=== PATIENT | female | born 1940 | race Caucasian/White ===

== ENCOUNTER 2017-05-25 17:22 | Inpatient (IN) | payer MEDICARE, OTHER, SELFPAY ==
[2017-05-25 17:23] VITALS: BP 157/69; PULSE 104; RESP 24; TEMP 37.2; O2SAT 98; BMI 33.7
--- NOTE | 2017-05-25 17:46 | CT_ITS ---
STUDY: CT BRAIN WITHOUT CONTRAST REASON FOR EXAM: Female, 77 years old. Weakness for 2 months. Hallucinations. History of diabetes and skin cancer. RADIATION DOSAGE (If Supplied By Facility): CTDIvol = ( 44.99 ) mGy, DLP = ( 812.98 ) mGycm TECHNIQUE: Transaxial CT imaging of the brain was performed without administration of intravenous contrast material. Individualized dose optimization techniques were used for this CT. COMPARISON: None. FINDINGS: Normal soft tissue structures. Normal calvarium. There is mild cerebral atrophy with widening of the extra-axial spaces and ventricular dilatation. There are areas of decreased attenuation within the white matter tracts of the supratentorial brain, consistent with microvascular disease changes. Normal basal ganglia and thalami. Normal brainstem. Normal cerebellum. There is no intracranial hemorrhage. There are no findings of an acute ischemic infarction. There is minimal ethmoid sinusitis. CT/Brain/Head without Contrast IMPRESSION: 1. Chronic involutional changes without evidence of acute intracranial or calvarial abnormality. 2. Mild ethmoid sinusitis. Electronically Signed: Kevin Cabrera DO at 18:25 EST Tel [phone], Service support ,
--- NOTE | 2017-05-25 17:47 | EKG12_ITS ---
Test Reason : STROKE Blood Pressure : / mmHG Vent. Rate : 107 BPM Atrial Rate : 107 BPM P-R Int : 182 ms QRS Dur : 084 ms QT Int : 334 ms P-R-T Axes : 032 -24 023 degrees QTc Int : 445 ms Sinus tachycardia Otherwise normal ECG Confirmed by DENNIS MULLIGAN, FRANKO ([id number]), editorial intern EULA LOCKHART ([id number]) on 05/29/2017 4:20:59 PM Referred By: Confirmed By:FRANKO COLLINS MD
[2017-05-25 18:00] LABS: Absolute Lymphocyte Count 1.03 X10^3/ul (0.83-4.51); Absolute Neutrophil Count 15.2 X10^3/uL (2.0-7.7); Basophil# 0.03 X10^3/uL; Basophil% 0.2 % (0-1); Eosinophil# 0.02 X10^3/uL; Eosinophils% 0.1 % (0-5); Hematocrit 41.3 % (37-47); Hemoglobin 13.5 g/dl (12.0-15.0); Lymphocyte # 1.03 X10^3/ul (4.0); Mean Corp Hgb Conc 32.7 g/gl (32-36); Mean Corpuscular Hgb 28.2 pg (27.0-32.0); Mean Corpuscular Volume 86.2 fL (81-99); Mean Platelet Vol. 9.5 fl (6.2-12.0); Monocyte# 0.95 X10^3/uL; Monocyte% 5.5 % (0-10); Neutrophil # 15.19 X10^3/uL (2.7-7.7); Neutrophil % 87.9 % (47-70); POSITIVE COUNT NO; POSITIVE DIFFERENTIAL NO; POSITIVE MORPHOLOGY NO; Platelet Count 281 K/mm3 (150-450); RBC Distribution Width CV 13.7 % (11.6-14.6); RBC Distribution Width SD 42.3 fl (35.1-43.9); Red Blood Count 4.79 M/mm3 (4.2-5.4); White Blood Count 17.3 K/mm3 (4.4-11.0)
--- NOTE | 2017-05-25 18:10 | RAD_ITS ---
STUDY: X-RAY CHEST REASON FOR EXAM: Female, 77 years old. Weakness. TECHNIQUE: PA and lateral views of the chest. COMPARISON: June 19, 2013. FINDINGS: Telemetry wires overlie the chest. The lungs are clear and expanded. There is no demonstrated pleural abnormality. Normal size heart. Normal mediastinum and joselyn. Normal visualized pulmonary arteries. Normal visualized aortic arch and descending thoracic aorta. There are diffuse degenerative changes of the visualized thoracic spine. Normal visualized ribs, clavicles, and shoulders. There are now surgical clips in the right breast. There is no demonstrated abnormality of the visualized soft tissue structures of the upper abdomen. RAD/Chest PA and Lateral IMPRESSION: No acute cardiopulmonary disease or major interval change. Electronically Signed: Kevin Cabrera DO at 18:32 EST Tel [phone], Service support ,
[2017-05-25 18:41] VITALS: BP 124/91; PULSE 98; RESP 16; O2SAT 98
[2017-05-25 18:42] LABS: Anion Gap 8 (5-15); BUN 11 mg/dL (7-18); BUN/Creat Ratio 10.5 RATIO (10-20); Calcium,Total 9.1 mg/dL (8.5-10.1); Chloride 102 mmol/L (98-107); Creatinine, Serum 1.05 mg/dL (0.55-1.02); EST Glomerular Filtration Rate 54 mL/min (>60); Est Glom Filt Rate - Afr Amer 65 mL/min (>60); Estimated Creatinine Clearance 40.38 ml/min; Glucose 135 mg/dL (74-106); Potassium 4.3 mmol/L (3.5-5.1); Sodium Level 135 mmol/L (136-145); Thyroid Stim Hormone (TSH) 0.32 uIU/mL (0.358-3.74)
[2017-05-25 19:21] VITALS: BP 124/91; PULSE 105; RESP 22; O2SAT 96
[2017-05-25 19:38] LABS: Bacteria 0 SEEN /hpf (None Seen); Mucous, Urine 0 SEEN /hpf (<or=2+); Red Blood Cells-Urine 0 SEEN /hpf (0-5)
[2017-05-25 19:52] LABS: Color, Urine Yellow (Yellow); Glucose, Dipstick Normal (Normal); Ketone-Dipstick Negative (Negative); Leukocyte Esterase-Dipstick 500 /ul (Negative); Nitrite-Dipstick Negative (Negative); Occult Blood-Urine Negative /ul (Negative); Protein-Dipstick Negative (Negative); Specific Gravity, Urine 1.005 (1.002-1.030); Urine Bilirubin Dipstick Negative (Negative); Urine Clarity Clear (Clear); Urine Urobilinogen Normal (Normal); Urine pH 6.5 (5.0 - 8.0)
[2017-05-25 20:13] LABS: White Blood Cells 5-10 SEEN /hpf (0-5)
[2017-05-25 20:14] LABS: Squamous Epithelial Cells - UA 0-5 SEEN /hpf (5-10)
--- NOTE | 2017-05-25 21:08 | ED.DCSUM_ITS ---
- ER Visit Summary Date of Service: 05/25/17 Chief Complaint: Confusion History of Present Illness: The patient is a [address] Rasocn. Family reports that she has been confused over the course the past 3 days. They question whether this is because she had her Wellbutrin increased from 150-300 mg 2 weeks ago. Patient uses as an example that she meant walking to the bathroom and she ended up in the kitchen. She states that she had a near fall today because she was off balance. Son reports that he found her on the floor. She lives by herself. Patient denies any pain or trauma from the fall. No neck, back, shoulder, wrist , or hip injury. She states she has had a cough for the past 3 days. She denies any fever, chills, chest pain, shortness of breath, abdominal pain, nausea, vomiting, diarrhea. No dysuria or frequency. No rash, headache, numbness, or weakness. She reports that her balance is off and that this comes and goes. Physical Examination: Vitals: Stable. Afebrile. General: Well-nourished and well-developed. Head: Normocephalic atraumatic. Neck: Supple, no lymphadenopathy. No JVD. Nontender. Cardiovascular: Regular rate and rhythm. 2 out of 6 systolic murmur. Respiratory: No respiratory distress. Clear to auscultation bilaterally. Abdominal: Soft, nontender, nondistended, normal bowel sounds. No guarding, rebound, or peritoneal signs. Back: Nontender. Extremities: Nontender, no edema. Skin: Normal color, no rash. Neurologic: Alert and oriented ? 2. She believes that it is 2111. Cranial nerves II through XII are intact. Normal strength and sensation. Psych: Normal affect. Test Results: EKG is sinus tach at [address] changes. This is unchanged from May 2013. Troponin is negative. UA shows 5-10 white blood cells without bacteria. This was sent for culture. Chem-7 is more for sodium 135, glucose 135, creatinine 1.05. TSH is 0.32. CBC is marked for white count of 17.3 with 88 segmented neutrophils and 6 lymphocytes. Chest x-ray shows chronic changes and no acute disease. CT brain shows chronic changes and mild ethmoid sinusitis. Emergency Department Course and Treatment: Patient has waxing and waning confusion consistent with an acute delirium. She does not appear uncomfortable. She denies headache. She clearly has no pain with movement of her neck. I do not feel that an LP is indicated. Family prefers this as well. Urine was sent for culture and the patient was given a gram of Rocephin IV. Treatment Plan: The patient was discussed with Dr. Isabel. She will be admitted to the hospital for further evaluation and treatment. Disposition: Admitted in stable condition. Impression: 1. Acute delirium. 2. Low TSH. 3. History of hypothyroidism. 4. Pyuria. 5. Leukocytosis. This note was generated with [employer] dictation software. It may contain incorrect words, spelling, and punctuation that were not noted in review of the chart prior to signing ED Disposition - Plan for ED Patient: Chief Complaint: Weakness Referrals: Rashad Rascon MD [Primary Care Provider] -
[2017-05-25] MEDS: Ceftriaxone 1 GM/50 ML BAG IV (21:12)
[2017-05-25 21:14] VITALS: BP 146/71; PULSE 92; RESP 22; O2SAT 94
--- NOTE | 2017-05-25 22:20 | PCM.HP.STD ---
Problem List (1) Dementia Status: Acute (2) UTI (urinary tract infection) Status: Acute (3) Delirium Status: Acute History of Present Illness Date of Admission: 05/25/17 Chief Complaint: Delirium secondary to UTI The patient is a 77 year old female w/ h/o senile dementia, hypothyroid, and HTN admitted for delirium. She has been having forgetfulness and worsening senile dementia for the past few years. Family has noted that for the past few months, she has been more confused at time. In the last few days, family noted that her confusion has gotten much worse. She lives by herself. She would talk to her who is not there. She would mistaken her son as her . She also has increase urinary frequency in the few days. She occasionally has burning sensation. Nothing made it better or worse. She is a poor historian and history is taken from her son. Past Medical History Allergies povidone-iodine [From Betadine] Allergy (Verified 05/25/17 17:26) Rash soap [From Betadine] Allergy (Verified 05/25/17 17:26) Rash Sulfa (Sulfonamide Antibiotics) Allergy (Verified 05/25/17 17:26) Rash adhesive Adverse Reaction (Verified 05/25/17 17:26) Hives diazepam [From Valium] Adverse Reaction (Verified 05/25/17 17:26) Other SLURRED SPEECH SODIUM PENTOTHAL Allergy (Uncoded 05/25/17 17:26) Nausea/Vom/Diarrhea SURGICAL TAPE Adverse Reaction (Uncoded 05/25/17 17:26) Hives Home Medications: Ambulatory Orders Medication Instructions Recorded Duloxetine Hcl [Cymbalta] 60 mg PO DAILY 06/19/13 Levothyroxine [Synthroid] 100 mcg PO DAILY 06/19/13 Losartan Potassium [Cozaar] 50 mg PO DAILY 06/19/13 Metformin HCl [Glucophage] 500 mg PO BID 06/19/13 Multivit-Min/FA/Lycopene/Lut 1 each PO DAILY 06/19/13 [Centrum Silver Tablet] Hydrocodone Bitart/Apap 5-325 1 tablet PO Q6H PRN PRN #15 tablet 06/26/13 [[place] 5/325] Atorvastatin Calcium [Lipitor] 20 mg PO QHS 05/25/17 Bupropion HCl [Wellbutrin Xl] 300 mg PO DAILY 05/25/17 Cholecalciferol (Vitamin D3) 50,000 unit PO QWEEK 05/25/17 [Vitamin D] Cyanocobalamin (Vitamin B-12) 1,000 mcg IJ QMONTH 05/25/17 [B-12 Compliance] Psychiatric History: No pertinent psych hx 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 Lives: Alone Smoking Status: Never smoker - *Family History Maternal History Items: No pertinent history Review of Systems Constitutional: Denies: Chills, Fever, Weight Change HEENT: Denies: Head Aches, Sinus Congestion, Sinus Drainage Cardiovascular: Denies: Chest Pain, Palpitations Respiratory: Denies: Cough, Shortness of breath at rest, Sputum production Gastrointestinal: Denies: Abdominal Pain, Nausea, Vomiting Genitourinary: Denies: Dysuria Musculoskeletal: Denies: Joint Pain, Joint Tenderness Skin: Denies: Rash, Wounds Neurological: Denies: Numbness, Tingling, Focal weakness Psychiatric: Denies: Anxiety, Depression, Homicidal Ideations, Suicidal Ideations Hematologic/ Lymphatic: Denies: Easy Bruising, Easy Bleeding VTE Information - Inpt Only VTE Present on Admission: No VTE Mechan Device Prophylaxis: SCD's VTE Pharm Prophylaxis ordered?: Yes Patient Problems: Active and Suspected Problems Dementia (Acute) UTI (urinary tract infection) (Acute) Delirium (Acute) - Physical Exam General: Alert, Oriented x3, Cooperative HEENT: Atraumatic, PERRLA, EOMI, Normocephalic Neck: Supple, No JVD, Negative Carotid Bruits Lungs: Clear to auscultation, Normal air movement Cardiovascular: Regular rate, No murmurs Abdomen: Bowel Sounds Present, Soft, Non Tender Extremities: No edema, Capillary Refill Less than 3 Seconds Skin: No rashes, No breakdown Musculoskeletal: No Tenderness to Palpation of Joints or Extremities Neurological: Cranial nerves II-XII grossly intact Psych/Mental Status: Normal Affect, Appropriate Vital Signs Temp Pulse Resp BP Pulse Ox 98.9 F 92 22 H 146/71 H 94 05/25/17 17:23 05/25/17 21:14 05/25/17 21:14 05/25/17 21:14 05/25/17 21:14 Oxygen Delivery Method Room Air Weight: 92 kg Body Mass Index (BMI) 33.7 Finger Stick Blood Glucose 132 Laboratory Tests Past 24 Hrs 05/25/17 05/25/17 05/25/17 17:30 17:30 19:30 WBC 17.3 H RBC 4.79 Hgb 13.5 Hct 41.3 MCV 86.2 MCH 28.2 MCHC 32.7 RDW 13.7 RDW Differential 42.3 Plt Count 281 MPV 9.5 Immature Gran % (Auto) 0.300 Neut % (Auto) 87.9 H Lymph % (Auto) 6.0 L [place] % (Auto) 5.5 Eos % (Auto) 0.1 Baso % (Auto) 0.2 Absolute Neuts (auto) 15.2 H Absolute Lymphs (auto) 1.03 Total Counted Not Reportable Sodium 135 L Potassium 4.3 Chloride 102 Carbon Dioxide 25.0 Anion Gap 8 BUN 11 Creatinine 1.05 H Estim Creat Clear Calc 40.38 Est GFR (MDRD) Af Amer 65 Est GFR (MDRD) Non-Af 54 L BUN/Creatinine Ratio 10.5 Glucose 135 H Calcium 9.1 Troponin I < 0.02 TSH 0.32 L Urine Color Yellow Urine Clarity Clear Urine pH 6.5 Ur Specific [place] 1.005 Urine Protein Negative Urine Glucose (UA) Normal Urine Ketones Negative Urine Occult Blood Negative Urine Nitrite Negative Urine Bilirubin Negative Urine Urobilinogen Normal Ur Leukocyte Esterase 500 H Urine RBC 0 SEEN Urine WBC 5-10 SEEN Ur Squamous Epith Cells 0-5 SEEN Urine Bacteria 0 SEEN Urine Mucus 0 SEEN Assessment/Plan Active and Suspected Problems Dementia (Acute) UTI (urinary tract infection) (Acute) Delirium (Acute) 77 year old female w/ h/o senile dementia, hypothyroid, and HTN admitted for delirium. 1) Delirium: Probably UTI vs sedative meds. Will start ceftriaxone. Will send for ammonia, TSH, cortisol, B12 / folate, and RPR. Consulted neuro. 2) UTI: C/w ceftriaxone. Pt has leukocytosis and symptoms c/w UTI. Cultures pending. 3) Senile dementia: Supportive care. Will limit sedative meds. Monitor. 4) Dispo: Pt will most likely need SNF as she is unable to care for herself and family unable to care for her. Social work / rn case management consulted. 5) Prophylaxis: SCD / heparin.
[2017-05-25 22:26] VITALS: BP 145/81; PULSE 90; RESP 16; O2SAT 95
[2017-05-25 23:05] VITALS: BMI 33.3
[2017-05-25 23:07] VITALS: BMI 33.3
[2017-05-25 23:35] VITALS: BP 145/64; PULSE 89; RESP 16; TEMP 37.1; O2SAT 95
[2017-05-25] MEDS: 0.9% Normal Saline 1,000 ML 100 ML IV (23:50)
[2017-05-25] MEDS: 0.9% NaCl Peripheral Flush Adult/Peds IV (23:50)
[2017-05-26] VITALS (7 sets, daily range): BP systolic 134–158; BP diastolic 65–71; PULSE 85–97; RESP 14–18; TEMP 36.7–37.3; O2SAT 96–98
[2017-05-26] MEDS: Levothyroxine 100 MCG Tablet PO (05:48)
[2017-05-26 06:14] LABS: Ammonia < 10.0 umol/L (11-32)
--- NOTE | 2017-05-26 09:38 | PCM.PROGNOTE ---
Patient Problems: Active and Suspected Problems Toxic metabolic encephalopathy (Acute) Subjective: Patient is a 77-year-old female with a past medical history of dementia, hypothyroidism diabetes mellitus type 2 , depression, hyperlipidemia and hypertension who was brought to the emergency room with a complaint of increased confusion over the preceding 2-3 days. She lives by herself. She complained of increased urinary frequency and dysuria. Temperature was 98.9 with pulse rate of 104, blood pressure of 157/69, respiratory rate of 24 and she was 98% saturated on room air. White blood cell count was elevated at 17.3 with a left shift. Hemoglobin was 13.5 and platelets were 281,000. BUN was 11 with a creatinine of 1.05. Troponin was less than 0.02. Her TSH was 0.32. Serum ammonia was less than 10. Urine had 5-10 white blood cells and no red blood cells. There was 0-5 squamous epithelial cells and it was nitrite negative. Chest x-ray showed no infiltrates. CT brain showed no acute findings. She was admitted to the hospital with a diagnosis of dementia with acute metabolic encephalopathy secondary to urinary tract infection. He was started on ceftriaxone and a urine culture was sent. She has been afebrile since admission. Streptococcal and Legionella antigens in the urine were negative. Influenza swab was negative. Urine culture and 1 blood culture are pending. When I asked her why she was in the hospital she told me her family thinks she is crazy. She denied dysuria but did c/o urinary frequency....recently had Wellbutrin increased to 300 mg daily. she had > 400 cc urine in the bladder and a johansen was inserted. she keeps feeling as though she needs to urinate. - Physical Exam General: Alert, Cooperative, Confused - oriented to person and knows she is in the hospital but can not tell me which hospital HEENT: Atraumatic, PERRLA, EOMI, Normocephalic Oral: Dry Mucosa Neck: Supple, No Nodes, Trachea Midline Lungs: Clear to auscultation, No rhonchi, No wheeze, No rales Cardiovascular: Regular rate, Regular Rhythm, Normal S1, Normal S2, No Gallop Abdomen: Bowel Sounds Present, Soft, Non Tender, Non-Distended, Obese Extremities: No clubbing, No cyanosis, No edema, No Calf Tenderness Skin: No rashes, No breakdown Neurological: Cranial nerves II-XII grossly intact, Neuro grossly intact Psych/Mental Status: Agitated Vital Signs Temp Pulse Resp BP Pulse Ox 99.2 F H 85 14 140/68 H 96 05/26/17 05:45 05/26/17 05:45 05/26/17 05:45 05/26/17 05:45 05/26/17 05:45 Oxygen Delivery Method Room Air Weight: 200 lb 2.876 oz Body Mass Index (BMI) 33.3 Intake and Output for Last 24 Hours 05/24/17 05/25/17 05/26/17 23:59 23:59 23:59 Intake Total 696 / 696 Balance 696 / 696 Microbiology Past 72 Hours 05/26/17 01:20 Influenza Types A,B Direct FA (BASSEM) - Final Mucosa - Nose Laboratory Tests Past 24 Hrs 05/25/17 05/26/17 05/26/17 23:21 05:40 05:40 Ammonia < 10.0 L Vitamin B12 Pending Folate Cortisol RPR Pending 05/26/17 05/26/17 05:40 05:40 Ammonia Vitamin B12 Folate 43.00 Cortisol 14.20 RPR Assessment/Plan Active and Suspected Problems Toxic metabolic encephalopathy (Acute) Impressions 1. Toxic Encephalopathy - likely secondary to wellbutrin 2. urine retention - due to Wellbutrin 3. dementia - suspected 4. DM II 5. Depression 6. Hypothyroidism 7. HTN 8. possible UTI continue the antibiotics and await the results of the urine culture wellbutrin has been discontinued Keep the johansen today and DC in the AM for a voiding trial TSH and T4 Seroquel 12.5 mg now and then 25 mg at HS I suspect the WEllbutrin is making her agitated. consult has been ordered with Dr. Ludwig. Code Visit Inpatient E&M: 01919 Subs Hosp L2
[2017-05-26] MEDS: 0.9% Normal Saline 1,000 ML 100 ML IV ×2 (09:51→20:11)
[2017-05-26] MEDS: Ceftriaxone 1 GM/50 ML BAG IV (09:51)
[2017-05-26] MEDS: Multivitamins,Ther W-Minerals Tablet 1 TABLET PO (09:55)
[2017-05-26] MEDS: Losartan Potassium 50 MG Tablet PO (09:55)
[2017-05-26] MEDS: DULoxetine Hcl 60 MG Capsule PO (09:55)
--- NOTE | 2017-05-26 10:59 | CASEMGMT ---
Social Work Note Pt has hx of dementia that according to the H&P has increased over the past few weeks. Pt is oriented to self and no family is present at this time. Physician is anticipating need for placement. PT/OT is ordered. SW placed call to the pt's son, Hector Varghese, and left a requesting a return phone call. SW to continue to follow and assist with discharge planning. Plan: DORY Naidu, DENSITOMETRIST, HOSPITAL MEDICAL ASSISTANT
--- NOTE | 2017-05-26 12:15 | CASEMGMT ---
Social Work Note Face to face with the pt and her son, Jr. Introduced self and role at [facility]. The pt reports to live in independent Living attached to the [facility]. There is not assistance provided in this setting and she has her own apartment on the second floor, there is elevator access. No steps for entry into the home, but if she uses the back entrance there are 3 according to the son. The pt has a walker and cane, but does not use them at baseline. She did use a standard walker with therapy today and their recommendation was home based on physical ability to care for self. Pt is independent with ADL's. Son lives locally and is supportive. At this time they intend on the pt returning, but are waiting to see how her mind clears and what her stability level is at discharge. SW to f/u on Sunday, pt may need HHC at discharge or to consider moving into [facility]. Medicare F2F placed on chart for physician to complete. Plan: DORY Naidu, GAME ARTIST, C CONSULTANT
[2017-05-26] MEDS: QUEtiapine 25 MG Tablet 12.5 MG PO (12:38)
[2017-05-26] MEDS: QUEtiapine 25 MG Tablet PO (20:11)
[2017-05-26] MEDS: Atorvastatin Calcium 20 MG Tablet PO (20:11)
[2017-05-27 02:15] VITALS: BP 146/68; PULSE 82; RESP 16; TEMP 36.8; O2SAT 97
[2017-05-27] MEDS: Levothyroxine 100 MCG Tablet PO (05:30)
[2017-05-27] MEDS: 0.9% Normal Saline 1,000 ML 100 ML IV (05:32)
[2017-05-27] MEDS: Multivitamins,Ther W-Minerals Tablet 1 TABLET PO (08:16)
[2017-05-27 08:42] LABS: Absolute Lymphocyte Count 1.74 X10^3/ul (0.83-4.51); Absolute Neutrophil Count 6.1 X10^3/uL (2.0-7.7); Basophil# 0.03 X10^3/uL; Basophil% 0.3 % (0-1); Eosinophil# 0.27 X10^3/uL; Hematocrit 36.8 % (37-47); Hemoglobin 11.8 g/dl (12.0-15.0); Lymphocyte # 1.74 X10^3/ul (4.0); Lymphocyte % 19.2 % (19-41); Mean Corp Hgb Conc 32.1 g/gl (32-36); Mean Corpuscular Volume 87.2 fL (81-99); Mean Platelet Vol. 9.6 fl (6.2-12.0); Monocyte% 9.9 % (0-10); Neutrophil % 67.4 % (47-70); Platelet Count 244 K/mm3 (150-450); RBC Distribution Width SD 43.9 fl (35.1-43.9); Red Blood Count 4.22 M/mm3 (4.2-5.4); White Blood Count 9.1 K/mm3 (4.4-11.0)
[2017-05-27 08:43] LABS: POSITIVE COUNT NO; POSITIVE DIFFERENTIAL NO; POSITIVE MORPHOLOGY NO
[2017-05-27 09:10] VITALS: BP 131/70; PULSE 87; RESP 18; TEMP 37.2; O2SAT 95
[2017-05-27 09:10] LABS: Anion Gap 7 (5-15); BUN 11 mg/dL (7-18); BUN/Creat Ratio 12.4 RATIO (10-20); Calcium,Total 8.2 mg/dL (8.5-10.1); Chloride 109 mmol/L (98-107); Creatinine, Serum 0.89 mg/dL (0.55-1.02); EST Glomerular Filtration Rate 66 mL/min (>60); Est Glom Filt Rate - Afr Amer 79 mL/min (>60); Estimated Creatinine Clearance 47.63 ml/min; Glucose 118 mg/dL (74-106); Potassium 4.3 mmol/L (3.5-5.1); Sodium Level 140 mmol/L (136-145)
[2017-05-27] MEDS: Losartan Potassium 50 MG Tablet PO (09:23)
[2017-05-27] MEDS: DULoxetine Hcl 60 MG Capsule PO (09:23)
[2017-05-27] MEDS: QUEtiapine 25 MG Tablet 12.5 MG PO (09:23)
[2017-05-27] MEDS: Ceftriaxone 1 GM/50 ML BAG IV (09:25)
--- NOTE | 2017-05-27 11:19 | PCM.CONS.GEN ---
Problem List (1) Metabolic encephalopathy Status: Acute (2) Delirium Status: Acute Reason for Consult Date of Consultation: 05/27/17 Reason for Consultation: Encephalopathy History of Present Illness: The patient is a 77 year old CF with PMH HTN, HLD, DM, Depression and hypothyroidism admitted with confusion. History is obtained from medical records and patient as well as her son. Per documentation patient had confusion for the past 2-3 days, per patient she was having hallucinations and was thinking that her will be visiting her. She lives alone, denies any frequent falls, does not use cane or walker to ambulate, does not drive. Per son prior to admission she probably was entangled in the belt of her dog and also had a fall. Per patient and family she has never been diagnosed with dementia, she does pay her bills and her son might also help her with the same. On admission she was found to have WBC -17.3, with slightly high creatinine-1.05, with UA- LE+ and BCs 5-10, CT head reported to show nothing acute, but showed ethmoid sinusitis. At present patient denies any MIRANDA, visual disturbances, speech disturbances, focal motor weakness or sensory loss, denies any tremors, REM behavior d/o, or hallucinations at present. Per documentation her Wellbutrin has been increased recently, no witnessed seizures, was also found to have TSH on admission. [] Past Medical History Allergies egg Allergy (Verified 05/25/17 23:32) Unknown povidone-iodine [From Betadine] Allergy (Verified 05/25/17 17:26) Rash soap [From Betadine] Allergy (Verified 05/25/17 17:26) Rash Sulfa (Sulfonamide Antibiotics) Allergy (Verified 05/25/17 17:26) Rash adhesive Adverse Reaction (Verified 05/25/17 17:26) Hives diazepam [From Valium] Adverse Reaction (Verified 05/25/17 17:26) Other SLURRED SPEECH SODIUM PENTOTHAL Allergy (Uncoded 05/25/17 17:26) Nausea/Vom/Diarrhea SURGICAL TAPE Adverse Reaction (Uncoded 05/25/17 17:26) Hives Home Medications: Ambulatory Orders Medication Instructions Recorded Duloxetine Hcl [Cymbalta] 60 mg PO DAILY 06/19/13 Levothyroxine [Synthroid] 100 mcg PO DAILY 06/19/13 Losartan Potassium [Cozaar] 50 mg PO DAILY 06/19/13 Metformin HCl [Glucophage] 500 mg PO BID 06/19/13 Multivit-Min/FA/Lycopene/Lut 1 each PO DAILY 06/19/13 [Centrum Silver Tablet] Hydrocodone Bitart/Apap 5-325 1 tablet PO Q6H PRN PRN #15 tablet 06/26/13 [[place] 5/325] Atorvastatin Calcium [Lipitor] 20 mg PO QHS 05/25/17 Bupropion HCl [Wellbutrin Xl] 300 mg PO DAILY 05/25/17 Cyanocobalamin (Vitamin B-12) 1,000 mcg IM QMONTH 05/25/17 [B-12 Compliance] Psychiatric History: No pertinent psych hx 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 HEENT: Atraumatic, PERRLA, EOMI, Normocephalic Neck: Supple Lungs: Clear to auscultation Cardiovascular: Regular rate Abdomen: Bowel Sounds Present, Soft, Non Tender Extremities: No clubbing Skin: No rashes Musculoskeletal: No Tenderness to Palpation of Joints or Extremities Neurological: - - consious, awake, AoAx1, Cn 2-12 grossly intact, power 5/5 all 4 extremities, no cerebellar signs, no sensory loss, Reflexes + B/L B/S/T/K/A, gait deferred. Vital Signs Temp Pulse Resp BP Pulse Ox 98.9 F 87 18 131/70 H 95 05/27/17 09:10 05/27/17 09:10 05/27/17 09:10 05/27/17 09:10 05/27/17 09:10 Oxygen Delivery Method Room Air Weight: 90.8 kg Body Mass Index (BMI) 33.3 Intake and Output for Last 24 Hours 05/25/17 05/26/17 05/27/17 23:59 23:59 23:59 Intake Total 2594 / 2594 1660 / 1660 Output Total 1875 / 1875 1100 / 1100 Balance 719 / 719 560 / 560 Microbiology Past 72 Hours 05/26/17 01:20 Influenza Types A,B Direct FA (BASSEM) - Final Mucosa - Nose Laboratory Tests Past 24 Hrs 05/26/17 05/27/17 05/27/17 05:40 08:05 08:05 WBC 9.1 RBC 4.22 Hgb 11.8 L Hct 36.8 L MCV 87.2 MCH 28.0 MCHC 32.1 RDW 14.0 RDW Differential 43.9 Plt Count 244 MPV 9.6 Immature Gran % (Auto) 0.200 Neut % (Auto) 67.4 Lymph % (Auto) 19.2 [place] % (Auto) 9.9 Eos % (Auto) 3.0 Baso % (Auto) 0.3 Absolute Neuts (auto) 6.1 Absolute Lymphs (auto) 1.74 Total Counted Not Reportable Sodium 140 Potassium 4.3 Chloride 109 H Carbon Dioxide 24.0 Anion Gap 7 BUN 11 Creatinine 0.89 Estim Creat Clear Calc 47.63 Est GFR (MDRD) Af Amer 79 Est GFR (MDRD) Non-Af 66 BUN/Creatinine Ratio 12.4 Glucose 118 H Calcium 8.2 L Thyroxine (T4) 8.0 Assessment/Plan Active and Suspected Problems Dementia (Acute) UTI (urinary tract infection) (Acute) Delirium (Acute) Metabolic encephalopathy (Acute) The patient is a 77 year old CF with PMH HTN, HLD, DM, Depression and hypothyroidism admitted with confusion. History is obtained from medical records and patient as well as her son. Per documentation patient had confusion for the past 2-3 days, per patient she was having hallucinations and was thinking that her will be visiting her. She lives alone, denies any frequent falls, does not use cane or walker to ambulate, does not drive. Per son prior to admission she probably was entangled in the belt of her dog and also had a fall. Per patient and family she has never been diagnosed with dementia, she does pay her bills and her son might also help her with the same. On admission she was found to have WBC -17.3, with slightly high creatinine-1.05, with UA- LE+ and BCs 5-10, CT head reported to show nothing acute, but showed ethmoid sinusitis. At present patient denies any MIRANDA, visual disturbances, speech disturbances, focal motor weakness or sensory loss, denies any tremors, REM behavior d/o, or hallucinations at present. Per documentation her Wellbutrin has been increased recently, no witnessed seizures, was also found to have TSH on admission. Has been started on ceftriaxone since admission. Impression Metabolic Encephalopathy Plan -Recommend MRI brain w/o contrast -CT head reviewed -Labs reviewed- mild UTI -May wean off Wellbutrin and avoid using the same in the future -Further medical management per primary team -Fall precautions -Recommend PT/OT -GI/DVT prophylaxis -Please call with questions if any -Thank you for allowing us to participate in patient's care and management. I spent 60 minutes taking history, doing physical examination, reviewing medical records, coordinating care and counseling the patient. Code Visit Inpatient E&M: 40908 Init Hosp L3
--- NOTE | 2017-05-27 11:28 | CON.PCM_ITS ---
Problem List (1) Metabolic encephalopathy Status: Acute (2) Delirium Status: Acute Reason for Consult Date of Consultation: 05/27/17 Reason for Consultation: Encephalopathy History of Present Illness: The patient is a 77 year old CF with PMH HTN, HLD, DM, Depression and hypothyroidism admitted with confusion. History is obtained from medical records and patient as well as her son. Per documentation patient had confusion for the past 2-3 days, per patient she was having hallucinations and was thinking that her will be visiting her. She lives alone, denies any frequent falls, does not use cane or walker to ambulate, does not drive. Per son prior to admission she probably was entangled in the belt of her dog and also had a fall. Per patient and family she has never been diagnosed with dementia, she does pay her bills and her son might also help her with the same. On admission she was found to have WBC -17.3, with slightly high creatinine-1.05 , with UA- LE+ and BCs 5-10, CT head reported to show nothing acute, but showed ethmoid sinusitis. At present patient denies any MIRANDA, visual disturbances, speech disturbances, focal motor weakness or sensory loss, denies any tremors, REM behavior d/o, or hallucinations at present. Per documentation her Wellbutrin has been increased recently, no witnessed seizures, was also found to have TSH on admission. [] Past Medical History Allergies egg Allergy (Verified 05/25/17 23:32) Unknown povidone-iodine [From Betadine] Allergy (Verified 05/25/17 17:26) Rash soap [From Betadine] Allergy (Verified 05/25/17 17:26) Rash Sulfa (Sulfonamide Antibiotics) Allergy (Verified 05/25/17 17:26) Rash adhesive Adverse Reaction (Verified 05/25/17 17:26) Hives diazepam [From Valium] Adverse Reaction (Verified 05/25/17 17:26) Other SLURRED SPEECH SODIUM PENTOTHAL Allergy (Uncoded 05/25/17 17:26) Nausea/Vom/Diarrhea SURGICAL TAPE Adverse Reaction (Uncoded 05/25/17 17:26) Hives Home Medications: Ambulatory Orders Medication Instructions Recorded Duloxetine Hcl [Cymbalta] 60 mg PO DAILY 06/19/13 Levothyroxine [Synthroid] 100 mcg PO DAILY 06/19/13 Losartan Potassium [Cozaar] 50 mg PO DAILY 06/19/13 Metformin HCl [Glucophage] 500 mg PO BID 06/19/13 Multivit-Min/FA/Lycopene/Lut 1 each PO DAILY 06/19/13 [Centrum Silver Tablet] Hydrocodone Bitart/Apap 5-325 1 tablet PO Q6H PRN PRN #15 tablet 06/26/13 [[place] 5/325] Atorvastatin Calcium [Lipitor] 20 mg PO QHS 05/25/17 Bupropion HCl [Wellbutrin Xl] 300 mg PO DAILY 05/25/17 Cyanocobalamin (Vitamin B-12) 1,000 mcg IM QMONTH 05/25/17 [B-12 Compliance] Psychiatric History: No pertinent psych hx 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 HEENT: Atraumatic, PERRLA, EOMI, Normocephalic Neck: Supple Lungs: Clear to auscultation Cardiovascular: Regular rate Abdomen: Bowel Sounds Present, Soft, Non Tender Extremities: No clubbing Skin: No rashes Musculoskeletal: No Tenderness to Palpation of Joints or Extremities Neurological: - - consious, awake, AoAx1, Cn 2-12 grossly intact, power 5/5 all 4 extremities, no cerebellar signs, no sensory loss, Reflexes + B/L B/S/T/K/A, gait deferred. Vital Signs Temp Pulse Resp BP Pulse Ox 98.9 F 87 18 131/70 H 95 05/27/17 09:10 05/27/17 09:10 05/27/17 09:10 05/27/17 09:10 05/27/17 09:10 Oxygen Delivery Method Room Air Weight: 90.8 kg Body Mass Index (BMI) 33.3 Intake and Output for Last 24 Hours 05/25/17 05/26/17 05/27/17 23:59 23:59 23:59 Intake Total 2594 / 2594 1660 / 1660 Output Total 1875 / 1875 1100 / 1100 Balance 719 / 719 560 / 560 Microbiology Past 72 Hours 05/26/17 01:20 Influenza Types A,B Direct FA (BASSEM) - Final Mucosa - Nose Laboratory Tests Past 24 Hrs 05/26/17 05/27/17 05/27/17 05:40 08:05 08:05 WBC 9.1 RBC 4.22 Hgb 11.8 L Hct 36.8 L MCV 87.2 MCH 28.0 MCHC 32.1 RDW 14.0 RDW Differential 43.9 Plt Count 244 MPV 9.6 Immature Gran % (Auto) 0.200 Neut % (Auto) 67.4 Lymph % (Auto) 19.2 [place] % (Auto) 9.9 Eos % (Auto) 3.0 Baso % (Auto) 0.3 Absolute Neuts (auto) 6.1 Absolute Lymphs (auto) 1.74 Total Counted Not Reportable Sodium 140 Potassium 4.3 Chloride 109 H Carbon Dioxide 24.0 Anion Gap 7 BUN 11 Creatinine 0.89 Estim Creat Clear Calc 47.63 Est GFR (MDRD) Af Amer 79 Est GFR (MDRD) Non-Af 66 BUN/Creatinine Ratio 12.4 Glucose 118 H Calcium 8.2 L Thyroxine (T4) 8.0 Assessment/Plan Active and Suspected Problems Dementia (Acute) UTI (urinary tract infection) (Acute) Delirium (Acute) Metabolic encephalopathy (Acute) The patient is a 77 year old CF with PMH HTN, HLD, DM, Depression and hypothyroidism admitted with confusion. History is obtained from medical records and patient as well as her son. Per documentation patient had confusion for the past 2-3 days, per patient she was having hallucinations and was thinking that her will be visiting her. She lives alone, denies any frequent falls, does not use cane or walker to ambulate, does not drive. Per son prior to admission she probably was entangled in the belt of her dog and also had a fall. Per patient and family she has never been diagnosed with dementia, she does pay her bills and her son might also help her with the same. On admission she was found to have WBC -17.3, with slightly high creatinine-1.05 , with UA- LE+ and BCs 5-10, CT head reported to show nothing acute, but showed ethmoid sinusitis. At present patient denies any MIRANDA, visual disturbances, speech disturbances, focal motor weakness or sensory loss, denies any tremors, REM behavior d/o, or hallucinations at present. Per documentation her Wellbutrin has been increased recently, no witnessed seizures, was also found to have TSH on admission. Has been started on ceftriaxone since admission. Impression Metabolic Encephalopathy Plan -Recommend MRI brain w/o contrast -CT head reviewed -Labs reviewed- mild UTI -May wean off Wellbutrin and avoid using the same in the future -Further medical management per primary team -Fall precautions -Recommend PT/OT -GI/DVT prophylaxis -Please call with questions if any -Thank you for allowing us to participate in patient's care and management. I spent 60 minutes taking history, doing physical examination, reviewing medical records, coordinating care and counseling the patient. Code Visit Inpatient E&M: 65802 Init Hosp L3
--- NOTE | 2017-05-27 12:21 | DCINST_ITS ---
- Discharge Diagnoses Current Active Problems: Current Active and Chronic Problems Dementia (Acute) UTI (urinary tract infection) (Acute) Delirium (Acute) Metabolic encephalopathy (Acute) You will use the following diet at home:: Other - Resume previous diet Your food should be the consistency of: Regular Your liquids should be the consistency of: Regular/Thin Discharge Activity: Return to Normal Activity Call your doctor if you observe: Fever of 101 or Higher, Numbness or Tingling, Shortness of breath, Dizziness, Fainting spells, Chest pain, - - any unilateral numbness or weakness, sudden loss of vision, trouble getting your words out, slurred speech, frequent falls Instructions: For Caregivers: Safety Tips for Dementia Patients, Understanding Dementia, Alzheimer's Disease Additional Instructions: I think the reason you felt like you had to urinate all the time at admission was you were retaining urine. This was most likely because of the recent increase in Wellbutrin. This medication was stopped and the catheter was removed and you have been able to urinate with no problem. You did not have a urinary tract infection......the urine culture has no growth. Wellbutrin can also cause agitation and insomnia and I do not think this medication is appropriate. The neurologist that saw you is Dr. Ludwig. He recommended stopping the Wellbutrin and getting an MRI of the brain. I have given you a requisition to obtain an MRI of the brain as an OP. You should call Dr. Rascon's office in the AM because you may need a pre- certification from your insurance company to have the MRI and then can get that done for you. Dr. Ludwig wants to see you in the office in 1 month. You are having some problems with memory loss and confusion and this is treatable. Dr. Ludwig can help you with this. I would not take Vicodin. This is a narcotic and can increase confusion. Take Tylenol for pain. Pending Tests on Discharge: B12 Allergies/Adverse Reactions: Allergies egg Allergy (Verified 05/25/17 23:32) Unknown povidone-iodine [From Betadine] Allergy (Verified 05/25/17 17:26) Rash soap [From Betadine] Allergy (Verified 05/25/17 17:26) Rash Sulfa (Sulfonamide Antibiotics) Allergy (Verified 05/25/17 17:26) Rash adhesive Adverse Reaction (Verified 05/25/17 17:26) Hives diazepam [From Valium] Adverse Reaction (Verified 05/25/17 17:26) Other SLURRED SPEECH SODIUM PENTOTHAL Allergy (Uncoded 05/25/17 17:26) Nausea/Vom/Diarrhea SURGICAL TAPE Adverse Reaction (Uncoded 05/25/17 17:26) Hives Medications to take at Discharge Duloxetine Hcl [Cymbalta] 60 mg PO DAILY 06/19/13 Levothyroxine [Synthroid] 100 mcg PO DAILY 06/19/13 Losartan Potassium [Cozaar] 50 mg PO DAILY 06/19/13 Metformin HCl [Glucophage] 500 mg PO BID 06/19/13 Multivit-Min/FA/Lycopene/Lut [Centrum Silver Tablet] 1 each PO DAILY 06/19/13 Atorvastatin Calcium [Lipitor] 20 mg PO QHS 05/25/17 Cyanocobalamin (Vitamin B-12) [B-12 Compliance] 1,000 mcg IM QMONTH 05/25/17 Acetaminophen [Tylenol] 650 mg PO Q4H PRN PRN #1 tablet 05/27/17 The following prescriptions were given: Acetaminophen [Tylenol] 650 mg PO Q4H PRN PRN #1 tablet PRN Reason: Pain Primary Care Physician: Rashad Rascon MD [Primary Care Provider] - Please follow up with your Primary Care Physician in: 5-7 days Please Follow Up With: Brunilda Ludwig MD When: 1 month Proposed Discharge Date: 05/27/17
--- NOTE | 2017-05-27 12:34 | PCM.DC.SUM ---
Discharge Date and Diagnosis Date of Admission: 05/25/17 Date of Discharge: 05/27/17 - Primary Discharge Diagnosis Active and Suspected Problems Toxic metabolic encephalopathy (Acute) - due to Wellbutrin - Secondary Discharge Diagnosis Chronic Problems HLD (hyperlipidemia) (Chronic) Depression (Chronic) DM II (diabetes mellitus, type II), controlled (Chronic) Hypothyroidism (Chronic) HTN (hypertension) (Chronic) Dementia (Chronic) - probably [place] [facility] Course and Treatment Imaging Results: 05/27/17 11:28 MRI Brain [Brain without Contrast] [MRI] Routine - requisition was given to obtain MRI as an OP Microbiology 05/25/17 19:30 Urine, Clean Catch Urine Culture - Preliminary Culture exhibits no growth. 05/25/17 19:30 Urine, Clean Catch Streptococcus pneumoniae Antigen (M - Final 05/25/17 19:30 Urine, Clean Catch Legionella Antigen - Final 05/26/17 01:20 Mucosa - Nose Influenza Types A,B Direct FA (BASSEM) - Final Laboratory Tests 05/25/17 05/25/17 05/25/17 17:30 17:30 19:30 WBC 17.3 H RBC 4.79 Hgb 13.5 Hct 41.3 MCV 86.2 MCH 28.2 MCHC 32.7 RDW 13.7 RDW Differential 42.3 Plt Count 281 MPV 9.5 Immature Gran % (Auto) 0.300 Neut % (Auto) 87.9 H Lymph % (Auto) 6.0 L [place] % (Auto) 5.5 Eos % (Auto) 0.1 Baso % (Auto) 0.2 Absolute Neuts (auto) 15.2 H Absolute Lymphs (auto) 1.03 Total Counted Not Reportable Sodium 135 L Potassium 4.3 Chloride 102 Carbon Dioxide 25.0 Anion Gap 8 BUN 11 Creatinine 1.05 H Estim Creat Clear Calc 40.38 Est GFR (MDRD) Af Amer 65 Est GFR (MDRD) Non-Af 54 L BUN/Creatinine Ratio 10.5 Glucose 135 H Calcium 9.1 Ammonia Troponin I < 0.02 Folate TSH 0.32 L Thyroxine (T4) Cortisol Urine Color Yellow Urine Clarity Clear Urine pH 6.5 Ur Specific [place] 1.005 Urine Protein Negative Urine Glucose (UA) Normal Urine Ketones Negative Urine Occult Blood Negative Urine Nitrite Negative Urine Bilirubin Negative Urine Urobilinogen Normal Ur Leukocyte Esterase 500 H Urine RBC 0 SEEN Urine WBC 5-10 SEEN Ur Squamous Epith Cells 0-5 SEEN Urine Bacteria 0 SEEN Urine Mucus 0 SEEN 05/26/17 05/26/17 05/26/17 05:40 05:40 05:40 WBC RBC Hgb Hct MCV MCH MCHC RDW RDW Differential Plt Count MPV Immature Gran % (Auto) Neut % (Auto) Lymph % (Auto) [place] % (Auto) Eos % (Auto) Baso % (Auto) Absolute Neuts (auto) Absolute Lymphs (auto) Total Counted Sodium Potassium Chloride Carbon Dioxide Anion Gap BUN Creatinine Estim Creat Clear Calc Est GFR (MDRD) Af Amer Est GFR (MDRD) Non-Af BUN/Creatinine Ratio Glucose Calcium Ammonia < 10.0 L Troponin I Folate 43.00 TSH Thyroxine (T4) Cortisol 14.20 Urine Color Urine Clarity Urine pH Ur Specific [place] Urine Protein Urine Glucose (UA) Urine Ketones Urine Occult Blood Urine Nitrite Urine Bilirubin Urine Urobilinogen Ur Leukocyte Esterase Urine RBC Urine WBC Ur Squamous Epith Cells Urine Bacteria Urine Mucus 05/26/17 05/27/17 05/27/17 05:40 08:05 08:05 WBC 9.1 RBC 4.22 Hgb 11.8 L Hct 36.8 L MCV 87.2 MCH 28.0 MCHC 32.1 RDW 14.0 RDW Differential 43.9 Plt Count 244 MPV 9.6 Immature Gran % (Auto) 0.200 Neut % (Auto) 67.4 Lymph % (Auto) 19.2 [place] % (Auto) 9.9 Eos % (Auto) 3.0 Baso % (Auto) 0.3 Absolute Neuts (auto) 6.1 Absolute Lymphs (auto) 1.74 Total Counted Not Reportable Sodium 140 Potassium 4.3 Chloride 109 H Carbon Dioxide 24.0 Anion Gap 7 BUN 11 Creatinine 0.89 Estim Creat Clear Calc 47.63 Est GFR (MDRD) Af Amer 79 Est GFR (MDRD) Non-Af 66 BUN/Creatinine Ratio 12.4 Glucose 118 H Calcium 8.2 L Ammonia Troponin I Folate TSH Thyroxine (T4) 8.0 Cortisol Urine Color Urine Clarity Urine pH Ur Specific [place] Urine Protein Urine Glucose (UA) Urine Ketones Urine Occult Blood Urine Nitrite Urine Bilirubin Urine Urobilinogen Ur Leukocyte Esterase Urine RBC Urine WBC Ur Squamous Epith Cells Urine Bacteria Urine Mucus Clinical Impression(s) from Imaging Studies Brain CT 05/25/17 17:46 IMPRESSION: 1. Chronic involutional changes without evidence of acute intracranial or calvarial abnormality. 2. Mild ethmoid sinusitis. Electronically Signed: Kevin Cabrera DO at 18:25 EST Tel [phone], Service support , Chest X-Ray 05/25/17 18:10 IMPRESSION: No acute cardiopulmonary disease or major interval change. Electronically Signed: Kevin Cabrera DO at 18:32 EST Tel [phone], Service support , Dr. Ludwig - Neurology Operations: None Procedures: None Summary of Care Provided: The Patient is a 77-year-old female with a past medical history of dementia, hypothyroidism diabetes mellitus type 2 , depression, hyperlipidemia and hypertension who was brought to the emergency room with a complaint of increased confusion over the preceding 2-3 days. She lives by herself. She complained of increased urinary frequency and dysuria. Temperature was 98.9 with pulse rate of 104, blood pressure of 157/69, respiratory rate of 24 and she was 98% saturated on room air. White blood cell count was elevated at 17.3 with a left shift. Hemoglobin was 13.5 and platelets were 281,000. BUN was 11 with a creatinine of 1.05. Troponin was less than 0.02. Her TSH was 0.32. Serum ammonia was less than 10. Urine had 5-10 white blood cells and no red blood cells. There was 0-5 squamous epithelial cells and it was nitrite negative. Chest x-ray showed no infiltrates. CT brain showed no acute findings. She was admitted to the hospital with a diagnosis of dementia with acute metabolic encephalopathy secondary to urinary tract infection. She was started on ceftriaxone and a urine culture was sent. Wellbutrin was discontinued. She was experiencing urine retention and a Shrestha catheter was inserted. Urine culture had mixed GM negatives and GM positives and this was likely a contaminated specimen. She was afebrile for the duration of her hospital stay. Vital signs were stable and she was alert and oriented on the date of discharge. She was seen by Dr. Ludwig on the day of DC and he ordered an MRI. MRI's are not done except on an emergency basis on Sundays and I did not feel she needed this done emergently. The Shrestha catheter was discontinued on 05/27/17 and the patient was able to urinate freely with no retention. It is likely that the Wellbutrin contributed to urine retention and also to confusion. She was discharged home on 05/27/17 on no new medications. She was instructed not to resume the Wellbutrin. I discussed the hospital stay with her son Jung on the phone on the day of DC and explained that the MRI could be done as an OP and he should discuss a referral for MRI with her PCP because a pre-certification may be needed. I also recommended that she follow up with Dr. Ludwig because she may benefit from medication to slow down the progression of the dementia. The family may need to consider at some point assisted living where she would have close supervision. This note was generated with [employer] software. It may contain incorrect words, spelling, and punctuation that were not noted in checking the note before signing. Discharge Activity: Return to Normal Activity Call your doctor if you observe: Fever of 101 or Higher, Numbness or Tingling, Shortness of breath, Dizziness, Fainting spells, Chest pain, - - any unilateral numbness or weakness, sudden loss of vision, trouble getting your words out, slurred speech, frequent falls Home Medications: Medications to take at Discharge Duloxetine Hcl [Cymbalta] 60 mg PO DAILY 06/19/13 Levothyroxine [Synthroid] 100 mcg PO DAILY 06/19/13 Losartan Potassium [Cozaar] 50 mg PO DAILY 06/19/13 Metformin HCl [Glucophage] 500 mg PO BID 06/19/13 Multivit-Min/FA/Lycopene/Lut [Centrum Silver Tablet] 1 each PO DAILY 06/19/13 Atorvastatin Calcium [Lipitor] 20 mg PO QHS 05/25/17 Cyanocobalamin (Vitamin B-12) [B-12 Compliance] 1,000 mcg IM QMONTH 05/25/17 Acetaminophen [Tylenol] 650 mg PO Q4H PRN PRN #1 tablet 05/27/17 Following Prescrptions Were Given to Patient: Acetaminophen [Tylenol] 650 mg PO Q4H PRN PRN #1 tablet PRN Reason: Pain Other Amb Orders: Brain without Contrast [MRI] Location: None Selected Primary Care Physician: Rashad Rascon MD [Primary Care Provider] - Please follow up with your Primary Care Physician in: 5-7 days Please Follow Up With: Brunilda Ludwig MD When: 1 month Patient Instructions: For Caregivers: Safety Tips for Dementia Patients, Understanding Dementia, Alzheimer's Disease Meaningful Use Info Meaningful Use Diagnoses (Choose all that apply): None applicable Code Visit Inpatient E&M: 18416 Disch Hosp
--- NOTE | 2017-05-27 12:39 | DS.PCM_ITS ---
Discharge Date and Diagnosis Date of Admission: 05/25/17 Date of Discharge: 05/27/17 - Primary Discharge Diagnosis Active and Suspected Problems Toxic metabolic encephalopathy (Acute) - due to Wellbutrin - Secondary Discharge Diagnosis Chronic Problems HLD (hyperlipidemia) (Chronic) Depression (Chronic) DM II (diabetes mellitus, type II), controlled (Chronic) Hypothyroidism (Chronic) HTN (hypertension) (Chronic) Dementia (Chronic) - probably [facility] Hospital Course and Treatment Imaging Results: 05/27/17 11:28 MRI Brain [Brain without Contrast] [MRI] Routine - requisition was given to obtain MRI as an OP Microbiology 05/25/17 19:30 Urine, Clean Catch Urine Culture - Preliminary Culture exhibits no growth. 05/25/17 19:30 Urine, Clean Catch Streptococcus pneumoniae Antigen (M - Final 05/25/17 19:30 Urine, Clean Catch Legionella Antigen - Final 05/26/17 01:20 Mucosa - Nose Influenza Types A,B Direct FA (BASSEM) - Final Laboratory Tests 05/25/17 05/25/17 05/25/17 17:30 17:30 19:30 WBC 17.3 H RBC 4.79 Hgb 13.5 Hct 41.3 MCV 86.2 MCH 28.2 MCHC 32.7 RDW 13.7 RDW Differential 42.3 Plt Count 281 MPV 9.5 Immature Gran % (Auto) 0.300 Neut % (Auto) 87.9 H Lymph % (Auto) 6.0 L [place] % (Auto) 5.5 Eos % (Auto) 0.1 Baso % (Auto) 0.2 Absolute Neuts (auto) 15.2 H Absolute Lymphs (auto) 1.03 Total Counted Not Reportable Sodium 135 L Potassium 4.3 Chloride 102 Carbon Dioxide 25.0 Anion Gap 8 BUN 11 Creatinine 1.05 H Estim Creat Clear Calc 40.38 Est GFR (MDRD) Af Amer 65 Est GFR (MDRD) Non-Af 54 L BUN/Creatinine Ratio 10.5 Glucose 135 H Calcium 9.1 Ammonia Troponin I < 0.02 Folate TSH 0.32 L Thyroxine (T4) Cortisol Urine Color Yellow Urine Clarity Clear Urine pH 6.5 Ur Specific [place] 1.005 Urine Protein Negative Urine Glucose (UA) Normal Urine Ketones Negative Urine Occult Blood Negative Urine Nitrite Negative Urine Bilirubin Negative Urine Urobilinogen Normal Ur Leukocyte Esterase 500 H Urine RBC 0 SEEN Urine WBC 5-10 SEEN Ur Squamous Epith Cells 0-5 SEEN Urine Bacteria 0 SEEN Urine Mucus 0 SEEN 05/26/17 05/26/17 05/26/17 05:40 05:40 05:40 WBC RBC Hgb Hct MCV MCH MCHC RDW RDW Differential Plt Count MPV Immature Gran % (Auto) Neut % (Auto) Lymph % (Auto) [place] % (Auto) Eos % (Auto) Baso % (Auto) Absolute Neuts (auto) Absolute Lymphs (auto) Total Counted Sodium Potassium Chloride Carbon Dioxide Anion Gap BUN Creatinine Estim Creat Clear Calc Est GFR (MDRD) Af Amer Est GFR (MDRD) Non-Af BUN/Creatinine Ratio Glucose Calcium Ammonia < 10.0 L Troponin I Folate 43.00 TSH Thyroxine (T4) Cortisol 14.20 Urine Color Urine Clarity Urine pH Ur Specific [place] Urine Protein Urine Glucose (UA) Urine Ketones Urine Occult Blood Urine Nitrite Urine Bilirubin Urine Urobilinogen Ur Leukocyte Esterase Urine RBC Urine WBC Ur Squamous Epith Cells Urine Bacteria Urine Mucus 05/26/17 05/27/17 05/27/17 05:40 08:05 08:05 WBC 9.1 RBC 4.22 Hgb 11.8 L Hct 36.8 L MCV 87.2 MCH 28.0 MCHC 32.1 RDW 14.0 RDW Differential 43.9 Plt Count 244 MPV 9.6 Immature Gran % (Auto) 0.200 Neut % (Auto) 67.4 Lymph % (Auto) 19.2 [place] % (Auto) 9.9 Eos % (Auto) 3.0 Baso % (Auto) 0.3 Absolute Neuts (auto) 6.1 Absolute Lymphs (auto) 1.74 Total Counted Not Reportable Sodium 140 Potassium 4.3 Chloride 109 H Carbon Dioxide 24.0 Anion Gap 7 BUN 11 Creatinine 0.89 Estim Creat Clear Calc 47.63 Est GFR (MDRD) Af Amer 79 Est GFR (MDRD) Non-Af 66 BUN/Creatinine Ratio 12.4 Glucose 118 H Calcium 8.2 L Ammonia Troponin I Folate TSH Thyroxine (T4) 8.0 Cortisol Urine Color Urine Clarity Urine pH Ur Specific [place] Urine Protein Urine Glucose (UA) Urine Ketones Urine Occult Blood Urine Nitrite Urine Bilirubin Urine Urobilinogen Ur Leukocyte Esterase Urine RBC Urine WBC Ur Squamous Epith Cells Urine Bacteria Urine Mucus Clinical Impression(s) from Imaging Studies Brain CT 05/25/17 17:46 IMPRESSION: 1. Chronic involutional changes without evidence of acute intracranial or calvarial abnormality. 2. Mild ethmoid sinusitis. Electronically Signed: Kevin Cabrera DO at 18:25 EST Tel [phone], Service support , Chest X-Ray 05/25/17 18:10 IMPRESSION: No acute cardiopulmonary disease or major interval change. Electronically Signed: Kevin Cabrera DO at 18:32 EST Tel [phone], Service support , Dr. Ludwig - Neurology Operations: None Procedures: None Summary of Care Provided: The Patient is a 77-year-old female with a past medical history of dementia , hypothyroidism diabetes mellitus type 2 , depression, hyperlipidemia and hypertension who was brought to the emergency room with a complaint of increased confusion over the preceding 2-3 days. She lives by herself. She complained of increased urinary frequency and dysuria. Temperature was 98.9 with pulse rate of 104, blood pressure of 157/69, respiratory rate of 24 and she was 98% saturated on room air. White blood cell count was elevated at 17.3 with a left shift. Hemoglobin was 13.5 and platelets were 281,000. BUN was 11 with a creatinine of 1.05. Troponin was less than 0.02. Her TSH was 0.32. Serum ammonia was less than 10. Urine had 5-10 white blood cells and no red blood cells. There was 0-5 squamous epithelial cells and it was nitrite negative. Chest x-ray showed no infiltrates. CT brain showed no acute findings. She was admitted to the hospital with a diagnosis of dementia with acute metabolic encephalopathy secondary to urinary tract infection. She was started on ceftriaxone and a urine culture was sent. Wellbutrin was discontinued. She was experiencing urine retention and a Shrestha catheter was inserted. Urine culture had mixed GM negatives and GM positives and this was likely a contaminated specimen. She was afebrile for the duration of her hospital stay. Vital signs were stable and she was alert and oriented on the date of discharge. She was seen by Dr. Ludwig on the day of DC and he ordered an MRI. MRI 's are not done except on an emergency basis on Sundays and I did not feel she needed this done emergently. The Shrestha catheter was discontinued on 05/27/17 and the patient was able to urinate freely with no retention. It is likely that the Wellbutrin contributed to urine retention and also to confusion. She was discharged home on 05/27/17 on no new medications. She was instructed not to resume the Wellbutrin. I discussed the hospital stay with her son Jung on the phone on the day of DC and explained that the MRI could be done as an OP and he should discuss a referral for MRI with her PCP because a pre-certification may be needed. I also recommended that she follow up with Dr. Ludwig because she may benefit from medication to slow down the progression of the dementia. The family may need to consider at some point assisted living where she would have close supervision. This note was generated with [employer] software. It may contain incorrect words, spelling, and punctuation that were not noted in checking the note before signing. Discharge Activity: Return to Normal Activity Call your doctor if you observe: Fever of 101 or Higher, Numbness or Tingling, Shortness of breath, Dizziness, Fainting spells, Chest pain, - - any unilateral numbness or weakness, sudden loss of vision, trouble getting your words out, slurred speech, frequent falls Home Medications: Medications to take at Discharge Duloxetine Hcl [Cymbalta] 60 mg PO DAILY 06/19/13 Levothyroxine [Synthroid] 100 mcg PO DAILY 06/19/13 Losartan Potassium [Cozaar] 50 mg PO DAILY 06/19/13 Metformin HCl [Glucophage] 500 mg PO BID 06/19/13 Multivit-Min/FA/Lycopene/Lut [Centrum Silver Tablet] 1 each PO DAILY 06/19/13 Atorvastatin Calcium [Lipitor] 20 mg PO QHS 05/25/17 Cyanocobalamin (Vitamin B-12) [B-12 Compliance] 1,000 mcg IM QMONTH 05/25/17 Acetaminophen [Tylenol] 650 mg PO Q4H PRN PRN #1 tablet 05/27/17 Following Prescrptions Were Given to Patient: Acetaminophen [Tylenol] 650 mg PO Q4H PRN PRN #1 tablet PRN Reason: Pain Other Amb Orders: Brain without Contrast [MRI] Location: None Selected Primary Care Physician: Rashad Rascon MD [Primary Care Provider] - Please follow up with your Primary Care Physician in: 5-7 days Please Follow Up With: Brunilda Ludwig MD When: 1 month Patient Instructions: For Caregivers: Safety Tips for Dementia Patients, Understanding Dementia, Alzheimer's Disease Meaningful Use Info Meaningful Use Diagnoses (Choose all that apply): None applicable Code Visit Inpatient E&M: 82770 Disch Hosp
[2017-05-27 14:14] VITALS: BP 137/74; PULSE 103; RESP 16; TEMP 37; O2SAT 97
[2017-05-28 10:36] LABS: Vitamin B12 642 pg/mL (211-911)
[2017-06-01 01:08] LABS: Rapid Plasmin Reagin (RPR) NONREACTIVE (NONREACTIVE)
== END 2017-05-27 14:25 | disposition home or self-care (01) | DRG 93 ==
LOC: ED 18:07 → MS3 22:32
PROVIDERS: Admitting Provider Internal Medicine; Emergency Provider Emergency Medicine; Family Provider Family Medicine; PCP Family Medicine; Visit Provider Internal Medicine
DX: G92 Toxic encephalopathy (principal); E11.9 Type 2 diabetes mellitus without complications; G30.9 Alzheimer's disease, unspecified; E03.9 Hypothyroidism, unspecified; F02.80 Dementia in other diseases classified elsewhere, unspecified severity, without behavioral disturbance, psychotic disturbance, mood disturbance, and anxiety; E78.5 Hyperlipidemia, unspecified; T43.295A Adverse effect of other antidepressants, initial encounter; F32.9 Major depressive disorder, single episode, unspecified; I10 Essential (primary) hypertension; Z79.84 Long term (current) use of oral hypoglycemic drugs; R33.0 Drug induced retention of urine
CPT/HCPCS: 36415; 70450; 71046; 80048; 81001; 82140; 82533; 82607; 82746; 84436; 84443; 84484; 85025; 86592; 87040; 87086; 87088; 87449; 87804; 93005; 97162; 97166; 97530; 97535; 99285; J7030; J7040; A4216

== ENCOUNTER 2018-09-10 12:48 | Emergency (ER) | payer MEDICARE, OTHER, SELFPAY ==
[2018-09-10 12:49] VITALS: BP 135/76; PULSE 81; RESP 16; TEMP 36.7; O2SAT 97; BMI 30.5
--- NOTE | 2018-09-10 13:03 | CT_ITS ---
STUDY: CT BRAIN WITHOUT CONTRAST REASON FOR EXAM: Female, 78 years old. Head injury. No loss of consciousness. RADIATION DOSAGE (If Supplied By Facility): CTDIvol = ( 44.99 ) mGy, DLP = ( 779.24 ) mGycm TECHNIQUE: Transaxial CT imaging of the brain was performed without administration of intravenous contrast material. Individualized dose optimization techniques were used for this CT. COMPARISON: Comparison is made with prior study dated May 25, 2017. FINDINGS: Normal soft tissue structures. Normal calvarium. There is mild cerebral atrophy with widening of the extra-axial spaces and ventricular dilatation. There are areas of decreased attenuation within the white matter tracts of the supratentorial brain, consistent with microvascular disease changes. Normal basal ganglia and thalami. Normal brainstem. Normal cerebellum. There is no intracranial hemorrhage. There are no findings of an acute ischemic infarction. Normal visualized paranasal sinuses. CT/Brain/Head without Contrast IMPRESSION: Chronic involutional changes of the brain. Electronically Signed: Zeus Vergara, at 13:42 EDT , Service support ,
--- NOTE | 2018-09-10 13:03 | CT_ITS ---
STUDY: CT CERVICAL SPINE WITHOUT CONTRAST REASON FOR EXAM: Female, 78 years old. History of fall. RADIATION DOSAGE (If Supplied By Facility): CTDIvol = ( 25.07 ) mGy, DLP = ( 515 ) mGycm TECHNIQUE: High resolution transaxial imaging was performed without contrast material. Sagittal and coronal images were reconstructed. Individualized dose optimization techniques were used for this CT. COMPARISON: None FINDINGS: Normal craniovertebral junction. Normal anterior atlantoaxial articulation. Normal odontoid process. Normal cervical lordosis. Normal vertebral bodies and posterior osseous elements. C2-3: Normal endplates. Normal disc height and morphology. Normal central canal and intervertebral neuroforamina. C3-4: Normal endplates. Normal disc height and morphology. Normal central canal and intervertebral neuroforamina. C4-5: Facet joint osteoarthritis and hypertrophy. Uncovertebral arthrosis worse on the right side causing a mild degree of right neural foraminal stenosis. C5-6: Anterior spondylosis. Uncovertebral arthrosis. No significant narrowing is seen. C6-7: Moderate degree of disc space narrowing with spondylosis. Uncovertebral arthrosis with moderate bilateral neural foraminal stenosis. C7-T1: Normal endplates. Normal disc height and morphology. Normal central canal and intervertebral neuroforamina. Normal visualized soft tissue structures. CT/Spine Cervical without Contras IMPRESSION: Multilevel degenerative changes, as described above. Electronically Signed: Zeus Vergara, at 13:55 EDT , Service support ,
--- NOTE | 2018-09-10 13:04 | ED.DCSUM_ITS ---
- ER Visit Summary Date of Service: 09/10/18 Chief Complaint: Fall History of Present Illness: The patient is a [address] Rascon. She is a poor informant due to dementia. She lives by herself. This morning she called her son and told him she had neck pain. She reported that she had not fallen. They went to urgent care and she told them she did fall. She denies a loss of consciousness. She is not on blood thinners. Patient reports that she has neck pain is 3 out of 10 severity. She does have a headache. When asked the severity of this she reports I ignore it. Review of systems is otherwise negative. Physical Examination: Vitals: Stable. Afebrile. General: Well-nourished and well-developed. Head: Normocephalic atraumatic. Neck: Supple, no lymphadenopathy. No JVD. Mild diffuse charge palpation over her C-spine. Full range of motion without difficulty. Cardiovascular: Regular rate and rhythm. No murmurs. Respiratory: No respiratory distress. Clear to auscultation bilaterally. Abdominal: Soft, nontender, nondistended, normal bowel sounds. No guarding, rebound, or peritoneal signs. Back: Nontender. Extremities: Nontender, no edema. Skin: Normal color, no rash. Neurologic: Alert and oriented ?2. Cranial nerves II through XII are intact. Normal strength and sensation. Psych: Normal affect. Test Results: CT brain shows no acute disease. CT neck shows degenerative changes. Emergency Department Course and Treatment: Patient was treated with Tylenol. She is resting comfortably. Treatment Plan: Patient will be discharged instructed use Tylenol for pain. F ollow-up Dr. Rascon in 1 week if not improving. Return to the emergency department for any worsening symptoms. Disposition: To home in improved and stable condition. Impression: 1. Fall. 2. Closed head injury. 3. Cervical strain. This note was generated with [employer] software. It may contain incorrect words, spelling, and punctuation that were not noted in review of the chart prior to signing ED Disposition - Plan for ED Patient: Instructions: Neck Sprain/Strain Referrals: Rashad Rascon MD [Primary Care Provider] - 1 Week if not improving
[2018-09-10] MEDS: Acetaminophen 500 MG Tablet 1000 MG PO (13:33)
[2018-09-10 14:39] VITALS: BP 131/76; PULSE 75; RESP 16
== END 2018-09-10 14:40 | disposition home or self-care (01) ==
LOC: ED 13:38
PROVIDERS: Emergency Provider Emergency Medicine; Family Provider Family Medicine; PCP Family Medicine
DX: S09.90XA Unspecified injury of head, initial encounter (principal); S16.1XXA Strain of muscle, fascia and tendon at neck level, initial encounter; W19.XXXA Unspecified fall, initial encounter; Y93.9 Activity, unspecified; Y92.9 Unspecified place or not applicable; F03.90 Unspecified dementia, unspecified severity, without behavioral disturbance, psychotic disturbance, mood disturbance, and anxiety; I10 Essential (primary) hypertension; E11.9 Type 2 diabetes mellitus without complications; E03.9 Hypothyroidism, unspecified; Z79.84 Long term (current) use of oral hypoglycemic drugs; Z79.899 Other long term (current) drug therapy
CPT/HCPCS: 70450; 72125; 99283

== ENCOUNTER 2021-07-28 12:10 | Observation (INO) | payer MEDICARE, OTHER, SELFPAY ==
[2021-07-28 12:11] VITALS: BP 148/82; PULSE 84; RESP 14; TEMP 36.7; O2SAT 97; BMI 28.2
--- NOTE | 2021-07-28 12:36 | EKG12_ITS ---
Test Reason : Blood Pressure : / mmHG Vent. Rate : 084 BPM Atrial Rate : 084 BPM P-R Int : 174 ms QRS Dur : 080 ms QT Int : 360 ms P-R-T Axes : 029 -24 033 degrees QTc Int : 425 ms Normal sinus rhythm Normal ECG When compared with ECG of 25-MAY-2017 17:29, No significant change was found Confirmed by DENNIS MULLIGAN, FRANKO ([id number]), state editor KHAI HAYDEN ([id number]) on 08/02/2021 8:21:43 AM Referred By: SABINA Confirmed By:FRANKO COLLINS MD
--- NOTE | 2021-07-28 12:38 | EX.ED.GENINJ ---
HPI <NARESH Mayo - Last Filed: 07/28/21 18:25> History of Present Illness Chief Complaint: Fall Narrative Narrative: 81-year-old female with PMH of HTN, HLD, DM2, hypothyroidism, dementia presents with increased confusion. She fell yesterday in the bathroom. Son was there and heard the fall and she had hit her back on the toilet. She had stated at that time she just was off balance. She was seen at [facility] and had CT scans of his brain/C-spine/T-spine only remarkable for posterior right 11th and 12th rib fractures. Since she got home last night she seemed more confused. Son states she is really declined with her dementia since the beginning of 2021 and has been seeing her doctor a few times and trying donepezil and weaned off since it did not help. She lives alone and normally ambulates without assistance or device. However today she was too weak to stand on her own which prompted them to come in. No new injuries or falls. No recent fever, chills, N/V/D, blood in stool, chest pain, shortness of breath, or cough. PFSH <NARESH Mayo - Last Filed: 07/28/21 18:25> [facility] Medical History (Updated 07/28/21 @ 22:[address] Rick Moore, ) Anxiety and depression Dementia DM II (diabetes mellitus, type II), controlled History of breast cancer HLD (hyperlipidemia) HTN (hypertension) Hypothyroidism Home Medications Centrum Silver 1 ea PO DAILY 06/19/13 [History Last Taken 07/28/21] duloxetine 60 mg PO DAILY 06/19/13 [History Last Taken 07/27/21] levothyroxine 88 mcg PO DAILY 06/19/13 [History Last Taken 07/28/21] losartan 50 mg PO DAILY 06/19/13 [History Last Taken 07/28/21] metformin 500 mg PO BID 06/19/13 [History Last Taken 07/28/21] atorvastatin 20 mg PO QHS 05/25/17 [History Last Taken 07/27/21] cholecalciferol (vitamin D3) 1,000 unit PO DAILY 09/10/18 [History Last Taken 07/27/21] memantine 5 mg PO BID 07/28/21 [History Last Taken Unknown] Allergy/AdvReac Type Severity Reaction Status Date / Time egg Allergy Unknown Verified 07/28/21 12:17 povidone-iodine Allergy Rash Verified 07/28/21 12:17 [From Betadine] soap [From Betadine] Allergy Rash Verified 07/28/21 12:17 Sulfa (Sulfonamide Allergy Rash Verified 07/28/21 12:17 Antibiotics) adhesive AdvReac Hives Verified 07/28/21 12:17 diazepam [From Valium] AdvReac Other Verified 07/28/21 12:17 SODIUM PENTOTHAL Allergy Nausea/Vom/ Uncoded 07/28/21 12:17 Diarrhea SURGICAL TAPE AdvReac Hives Uncoded 07/28/21 12:17 Family History (Updated 07/28/21 @ 20:[address] Antonia Adler MD) Mother Cancer Hx Leukemia. Father Cancer Hx Throat CA. Surgical History (Updated 07/28/21 @ 20:[address] Antonia Adler MD) H/O: hysterectomy History of back surgery History of right mastectomy History of total right knee replacement Social History (Updated 07/28/21 @ 20:[address] Antonia Adler MD) household members: none Smoking Status: Never smoker alcohol intake: never substance use type: does not use ROS <NARESH Mayo - Last Filed: 07/28/21 18:25> ROS ED ROS Narrative Constitutional: Positive for malaise. Negative for fever, chills. Eyes: Negative for visual change. ENT: Negative for sore throat, ear pain, rhinorrhea. CVS: Negative for palpitations, chest pain, syncope. Respiratory: Negative for shortness of breath, cough, orthopnea. GI: Negative for abdominal pain, nausea, vomiting, diarrhea, constipation, melena, hematochezia. : Negative for dysuria, hematuria or frequency. Neuro: Negative for headache, motor/sensory dysfunction. Skin: Negative for rash, abscess, or wound. Musc: Negative for joint pain, swelling, trauma. Heme: Negative for easy bruising, bleeding, lymphadenopathy. EXAM <NARESH Mayo - Last Filed: 07/28/21 18:25> Physical Exam Narrative Exam Narrative: CONST: Patient sitting in no acute distress. EYES: Normal inspection. PERRLA, EOMI. ENT: Normal inspection, slightly dry mucous membranes. NECK: Normal inspection. RESP: No respiratory distress, CTAB. CVS: Regular rate and rhythm, no murmur, no gallop. SKIN: Color normal, no rash, warm, dry, intact. EXTREMITIES: Normal appearance, no upper or lower extremity drift. NEURO: Oriented to self and place. This is her baseline. PSYCH: Normal affect. Const Vital Signs: 07/28/21 12:11 07/28/21 14:17 07/28/21 19:12 Temperature 98.1 F Temperature Source Temporal Pulse Rate 84 69 72 Respiratory Rate 14 14 14 Blood Pressure 148/82 H 127/90 H 164/84 H Blood Pressure Mean 104 102 110 Pulse Ox 97 97 997 Oxygen Delivery Method Room Air Room Air Room Air <Dr. Rick Moore DO - Last Filed: 07/28/21 22:57> Physical Exam Const Vital Signs: 07/28/21 12:11 07/28/21 14:17 07/28/21 19:12 Temperature 98.1 F Temperature Source Temporal Pulse Rate 84 69 72 Respiratory Rate 14 14 14 Blood Pressure 148/82 H 127/90 H 164/84 H Blood Pressure Mean 104 102 110 Pulse Ox 97 97 997 Oxygen Delivery Method Room Air Room Air Room Air MDM <NARESH Mayo - Last Filed: 07/28/21 18:25> [facility] MDM Narrative Medical decision making narrative: Patient presents with generalized weakness. She has dementia and has been gradually declining over months and today she was so weak and confused that family do not feel like she can stay home alone where she lives independently. Of note she fell yesterday and sustained right posterior 11th and 12th rib fractures. She appears well and nontoxic. Afebrile and vital signs within normal limits. She is keenly alert to self and place. She did seem confused such as when talking to the social work administrator she said that the social work administrator was her best friends with her mom. Her medical exam is unremarkable and she has no focal neurological deficits. Labs were obtained and show anemia of 10.9 which is around her baseline, mild hypokalemia 3.4, otherwise unremarkable. She was given oral potassium replacement. CXR and UA negative for infection. COVID-19 test is negative. With the nurse I helped the patient stand and ambulate she was able to take a few steps but seems unsteady without assistance. I do not feel she is safe to go home. Her son who is her medical POA also does not feel he can care for her. Patient was fully evaluated by social work who reached out to local facilities but at this time of evening she cannot be placed directly from the ER. Case will be discussed with the hospitalist. Diagnoses 1. Generalized weakness 2. History of dementia 3. History of recent rib fractures, right posterior 11th and 12th 4. Unsteady on feet, recent falls Lab Data Labs: Laboratory Results - last 24 hr 07/28/21 07/28/21 07/28/21 12:51 12:51 12:51 WBC 9.7 RBC 4.07 L Hgb 10.9 L Hct 35.0 L MCV 86.0 MCH 26.8 L MCHC 31.1 L RDW Std Deviation 46.5 H RDW Coeff of Areli 14.7 H Plt Count 239 MPV 9.6 Immature Gran % (Auto) 0.600 Neut % (Auto) 72.8 H Lymph % (Auto) 14.2 L [place] % (Auto) 10.0 Eos % (Auto) 1.9 Baso % (Auto) 0.5 Absolute Neuts (auto) 7.1 Absolute Lymphs (auto) 1.38 Nucleated RBC % 0 Sodium 141 Potassium 3.4 L Chloride 111 H Carbon Dioxide 23.0 Anion Gap 7 BUN 8 Creatinine 0.83 Estim Creat Clear Calc 49.76 Est GFR (MDRD) Af Amer 85 Est GFR (MDRD) Non-Af 70 BUN/Creatinine Ratio 9.7 L Glucose 115 H Calcium 7.5 L Magnesium 1.4 L Urine Color Urine Clarity Urine pH Ur Specific [place] Urine Protein Urine Glucose (UA) Urine Ketones Urine Occult Blood Urine Nitrite Urine Bilirubin Urine Urobilinogen Ur Leukocyte Esterase Urine RBC Urine WBC Ur Squamous Epith Cells Urine Bacteria Urine Mucus 07/28/21 13:32 WBC RBC Hgb Hct MCV MCH MCHC RDW Std Deviation RDW Coeff of Areli Plt Count MPV Immature Gran % (Auto) Neut % (Auto) Lymph % (Auto) [place] % (Auto) Eos % (Auto) Baso % (Auto) Absolute Neuts (auto) Absolute Lymphs (auto) Nucleated RBC % Sodium Potassium Chloride Carbon Dioxide Anion Gap BUN Creatinine Estim Creat Clear Calc Est GFR (MDRD) Af Amer Est GFR (MDRD) Non-Af BUN/Creatinine Ratio Glucose Calcium Magnesium Urine Color Yellow Urine Clarity Clear Urine pH 5.0 Ur Specific [place] 1.030 Urine Protein Negative Urine Glucose (UA) Normal Urine Ketones 5 H Urine Occult Blood Negative Urine Nitrite Negative Urine Bilirubin 1 H Urine Urobilinogen 1 H Ur Leukocyte Esterase 25 H Urine RBC 0 SEEN Urine WBC 0-5 SEEN Ur Squamous Epith Cells 0-5 SEEN Urine Bacteria 0 SEEN Urine Mucus 0 SEEN Radiography Diagnostic Testing: Clinical Impression(s) from Imaging Studies Chest X-Ray 07/28/21 13:00 IMPRESSION: Findings suggestive of a left basilar atelectasis. Electronically Signed: Zeus Vergara MD at 13:31 EDT , ED attending interpretation of chest x-ray shows normal heart size, no acute infiltrate. EKG Initial EKG: Attestation: I personally reviewed and interpreted this EKG as follows: Interpretation: Sinus Rhythm (Normal sinus rhythm, normal intervals, no acute ischemic changes) <Dr. Rick Moore, DO - Last Filed: 07/28/21 22:57> [facility] Narrative Medical decision making narrative: I have personally performed a face to face assessment of the patient and have reviewed the BRUNA Note. I performed a substantive portion of the visit including all aspects of the following. My acharya findings include: History: Patient presents after a fall that occurred the other day. Patient was seen at a different emergency department and had x-rays which showed rib fracture. Family states that the patient is having difficulty caring for herself at home and is confused at times. Patient is having difficulty standing and ambulating here in the emergency department. Exam: Vital signs are stable. Patient is afebrile. Patient is in no acute distress. Oral mucosa is pink and moist. Heart was regular rate and rhythm. Lungs are clear and equal bilateral. There is adequate respiratory effort. Abdomen is soft. Bowel sounds are normal. There is no tenderness. Cranial nerves II through XII are intact. There are no focal motor or sensory deficits noted. Patient is only alert and oriented x2. Patient is somewhat confused. Medical Decison Making: CBC shows mild anemia with a hemoglobin of 10.9 and hematocrit 35.0. Basic metabolic profile was essentially within normal limits. Urinalysis does not show any evidence of urinary tract infection. Patient was unable to stand and ambulate here in the emergency department. I do not feel the patient is safe to go home. Patient will be admitted for custodial placement. Case was discussed with the hospitalist. She will admit the patient for observation. Family understood and was agreeable with plan. All questions were answered. Lab Data Attestation: I reviewed the patient's lab results. Labs: Laboratory Results - last 24 hr 07/28/21 07/28/21 07/28/21 12:51 12:51 12:51 WBC 9.7 RBC 4.07 L Hgb 10.9 L Hct 35.0 L MCV 86.0 MCH 26.8 L MCHC 31.1 L RDW Std Deviation 46.5 H RDW Coeff of Areli 14.7 H Plt Count 239 MPV 9.6 Immature Gran % (Auto) 0.600 Neut % (Auto) 72.8 H Lymph % (Auto) 14.2 L [place] % (Auto) 10.0 Eos % (Auto) 1.9 Baso % (Auto) 0.5 Absolute Neuts (auto) 7.1 Absolute Lymphs (auto) 1.38 Nucleated RBC % 0 Sodium 141 Potassium 3.4 L Chloride 111 H Carbon Dioxide 23.0 Anion Gap 7 BUN 8 Creatinine 0.83 Estim Creat Clear Calc 49.76 Est GFR (MDRD) Af Amer 85 Est GFR (MDRD) Non-Af 70 BUN/Creatinine Ratio 9.7 L Glucose 115 H Calcium 7.5 L Magnesium 1.4 L Urine Color Urine Clarity Urine pH Ur Specific [place] Urine Protein Urine Glucose (UA) Urine Ketones Urine Occult Blood Urine Nitrite Urine Bilirubin Urine Urobilinogen Ur Leukocyte Esterase Urine RBC Urine WBC Ur Squamous Epith Cells Urine Bacteria Urine Mucus 07/28/21 13:32 WBC RBC Hgb Hct MCV MCH MCHC RDW Std Deviation RDW Coeff of Areli Plt Count MPV Immature Gran % (Auto) Neut % (Auto) Lymph % (Auto) [place] % (Auto) Eos % (Auto) Baso % (Auto) Absolute Neuts (auto) Absolute Lymphs (auto) Nucleated RBC % Sodium Potassium Chloride Carbon Dioxide Anion Gap BUN Creatinine Estim Creat Clear Calc Est GFR (MDRD) Af Amer Est GFR (MDRD) Non-Af BUN/Creatinine Ratio Glucose Calcium Magnesium Urine Color Yellow Urine Clarity Clear Urine pH 5.0 Ur Specific [place] 1.030 Urine Protein Negative Urine Glucose (UA) Normal Urine Ketones 5 H Urine Occult Blood Negative Urine Nitrite Negative Urine Bilirubin 1 H Urine Urobilinogen 1 H Ur Leukocyte Esterase 25 H Urine RBC 0 SEEN Urine WBC 0-5 SEEN Ur Squamous Epith Cells 0-5 SEEN Urine Bacteria 0 SEEN Urine Mucus 0 SEEN Radiography Diagnostic Testing: Clinical Impression(s) from Imaging Studies Chest X-Ray 07/28/21 13:00 IMPRESSION: Findings suggestive of a left basilar atelectasis. Electronically Signed: Zeus Vergara MD at 13:31 EDT , Discharge Plan Dx/Rx/DC Orders Clinical Impression: Fall, Rib fractures, FTT (failure to thrive) in adult Disposition Disposition: Acute Care [facility] Discharge Date/Time: 07/28/21 20:37
--- NOTE | 2021-07-28 13:00 | RAD_ITS ---
STUDY: X-RAY CHEST REASON FOR EXAM: Female, 81 years old. Weakness TECHNIQUE: Single AP portable view of the chest. COMPARISON: Comparison is made with prior study dated 05/25/2017. FINDINGS: Surgical clips are once again seen overlying the lower right thoracic cage. Mild increased linear markings at the left lung base suggestive of left basilar atelectasis. There is no demonstrated pleural abnormality. Normal size heart. Normal mediastinum and joselyn. Normal visualized pulmonary arteries. Normal visualized aortic arch and descending thoracic aorta. There are diffuse degenerative changes of the visualized thoracic spine. There is degenerative osteoarthritis of the bilateral shoulders. There is no demonstrated abnormality of the visualized soft tissue structures of the upper abdomen. RAD/Chest 1 View (Portable) IMPRESSION: Findings suggestive of a left basilar atelectasis. Electronically Signed: Zeus Vergara MD at 13:31 EDT ,
[2021-07-28 13:02] LABS: Absolute Lymphocyte Count 1.38 X10^3/uL (0.83-4.51); Absolute Neutrophil Count 7.1 X10^3/uL (2.0-7.7); Basophil# 0.05 X10^3/uL; Basophil% 0.5 % (0-1); Eosinophil# 0.18 X10^3/uL; Eosinophils% 1.9 % (0-5); Hemoglobin 10.9 g/dL (12.0-15.0); Lymphocyte # 1.38 X10^3/ul (0.83-4.51); Lymphocyte % 14.2 % (19-41); Mean Corp Hgb Conc 31.1 g/dL (32-36); Mean Corpuscular Hgb 26.8 pg (27.0-32.0); Mean Platelet Vol. 9.6 fl (6.2-12.0); Monocyte# 0.97 X10^3/uL; NRBC Flagged by Analyzer 0 % (0-5); Neutrophil # 7.05 X10^3/uL (2.7-7.7); Neutrophil % 72.8 % (47-70); Platelet Count 239 K/mm3 (150-450); RBC Distribution Width CV 14.7 % (11.6-14.6); RBC Distribution Width SD 46.5 fl (35.1-43.9); Red Blood Count 4.07 M/mm3 (4.2-5.4); White Blood Count 9.7 K/mm3 (4.4-11.0)
[2021-07-28 13:17] LABS: Anion Gap 7 (5-15); BUN 8 mg/dL (7-18); BUN/Creat Ratio 9.7 RATIO (10-20); Calcium,Total 7.5 mg/dL (8.5-10.1); Chloride 111 mmol/L (98-107); Creatinine, Serum 0.83 mg/dL (0.55-1.02); EST Glomerular Filtration Rate 70 mL/min (>60); Est Glom Filt Rate - Afr Amer 85 mL/min (>60); Estimated Creatinine Clearance 49.76 ml/min; Glucose 115 mg/dL (74-106); Potassium 3.4 mmol/L (3.5-5.1); Sodium Level 141 mmol/L (136-145)
[2021-07-28 13:42] LABS: Bacteria 0 SEEN /hpf (None Seen); Mucous, Urine 0 SEEN /hpf (<or=2+); Red Blood Cells-Urine 0 SEEN /hpf (0-5)
[2021-07-28 13:44] LABS: Color, Urine Yellow (Yellow); Glucose, Dipstick Normal (Normal); Ketone-Dipstick 5 mg/dl (Negative); Leukocyte Esterase-Dipstick 25 /ul (Negative); Nitrite-Dipstick Negative (Negative); Occult Blood-Urine Negative /ul (Negative); Protein-Dipstick Negative (Negative); Urine Clarity Clear (Clear); Urine Urobilinogen 1 mg/dl (Normal)
[2021-07-28 13:50] LABS: Squamous Epithelial Cells - UA 0-5 SEEN /hpf (5-10); Urine Bilirubin Dipstick 1 mg/dL (Negative); White Blood Cells 0-5 SEEN /hpf (0-5)
[2021-07-28 14:17] VITALS: BP 127/90; PULSE 69; RESP 14; O2SAT 97
--- NOTE | 2021-07-28 16:42 | CM.ED ---
DONNA Note Referral Source: [employer] Referral Reason: SNF placement SW met with patient who is pleasant. Patient was pleasant but patient did not appear to comprehend was this investment underwriter was asking her and family concurred. Fadia's son and granddaughter were present in the room. Discussed SNF. Patient has never been to SNF In the past. She is at [facility] currently. Son advised that he has seen a decline since March 2021. SW provided [employer] information and also provided family with list of SNF in [place] and [facility]. Son stated that family primarily resides in the [facility] so they would choose [facility]. Patient's son and granddaughter selected [facility] and [facility] as possibilities for placement for rehab. DONNA called Alanna at [facility] and she indicated she would review the referral. DONNA faxed referral to Alanna at [facility]. DONNA called Rea at [facility] and she said that she would review the referral. DONNA faxed referral to Rea at [facility]. Per family patient has had covid vaccine and booster. DONNA updated MD. Plan: SNF [facility]
--- NOTE | 2021-07-28 18:45 | CM.ED ---
DONNA called Rea at [facility]. She was gone for the day. DONNA called Alanna at [facility] and she was gone for the day but SW left voice mail message that patient is being admitted and the assigned aids social worker will follow up with her. RN advised that patient's son and granddaughter had voiced that their first choice is [facility] [place]. DONNA explained that SNF admission staff are gone for the day so patient will need to be admitted. Patient's son, Hector and granddaughter verbalized understanding. They are in agreement with plan for SNF due to patient's weakness and debilitation. Plan: SNF. Patient's family had been provided with information on SNF in [place]. Their first choice is [facility] for SNF. There second choice is [facility]. [facility]
[2021-07-28] MEDS: Potassium Chloride Oral Tablet 20 MEQ PO (19:08)
[2021-07-28 19:12] VITALS: BP 164/84; PULSE 72; RESP 14; O2SAT 997
--- NOTE | 2021-07-28 19:23 | HP.PCM.HOS_ITS ---
HPI - General General Date of Admission: 07/28/21 Date of Service: 07/28/21 Chief Complaint: Recent fall w/ rib fx, FTT adult HPI Narrative The patient is an 81 y/o F w/ PMHx: Chronic anemia, HTN, HLD, Anxiety and Depression, Diabetes mellitus type II, Hypothyroidism, Dementia unclear type with unclear behavioral disturbance history who presents to the [facility] ED on 07/28/21 which not fall the evening prior while in the bathroom unfortunately losing her balance falling backwards into the toilet only hitting her back on it fortunately however she had right-sided posterior back pain prompting evaluation at [facility] ED where she had a CT scan of the brain, C-spine and T-spine which demonstrated posterior right 11th and 12th rib fractures with return to home at that time however since then she seemed more fatigued, mildly increased confusion above her baseline with underlying dementia and unable to care for self prompting family to bring her for evaluation for possibly skilled placement. She upon trial in the ED was noted to be unstable with attempts to walk and has ongoing right-sided rib pain. Patient with no recent fever, chills, nausea, emesis, diarrhea, shortness of breath or specific chest pain different from discomfort from recent falls with rib fractures. Work-up in the ED included T98.1, heart rate 84, BP 148/82, respiratory rate 14, 97% on room air, CBC with WC 9.7, hemoglobin 10.9, platelet 239 without marked shift, BMP with potassium 3.4, chloride 111, glucose 115, urinalysis with evidence of dehydration otherwise no acute evidence of UTI, chest x-ray with no acute cardiopulmonary findings, rapid SARS COVID-negative, EKG with sinus rhythm with no acute evidence of ischemia. [facility] Medical History (Updated 07/28/21 @ 20:[address] Antonia Adler MD) Anxiety and depression Dementia DM II (diabetes mellitus, type II), controlled History of breast cancer HLD (hyperlipidemia) HTN (hypertension) Hypothyroidism Home Medications Centrum Silver 1 ea PO DAILY 06/19/13 [History Last Taken 07/28/21] duloxetine 60 mg PO DAILY 06/19/13 [History Last Taken 07/27/21] levothyroxine 88 mcg PO DAILY 06/19/13 [History Last Taken 07/28/21] losartan 50 mg PO DAILY 06/19/13 [History Last Taken 07/28/21] metformin 500 mg PO BID 06/19/13 [History Last Taken 07/28/21] atorvastatin 20 mg PO QHS 05/25/17 [History Last Taken 07/27/21] cholecalciferol (vitamin D3) 1,000 unit PO DAILY 09/10/18 [History Last Taken 07/27/21] memantine 5 mg PO BID 07/28/21 [History Last Taken Unknown] Allergy/AdvReac Type Severity Reaction Status Date / Time egg Allergy Unknown Verified 07/28/21 12:17 povidone-iodine Allergy Rash Verified 07/28/21 12:17 [From Betadine] soap [From Betadine] Allergy Rash Verified 07/28/21 12:17 Sulfa (Sulfonamide Allergy Rash Verified 07/28/21 12:17 Antibiotics) adhesive AdvReac Hives Verified 07/28/21 12:17 diazepam [From Valium] AdvReac Other Verified 07/28/21 12:17 SODIUM PENTOTHAL Allergy Nausea/Vom/ Uncoded 07/28/21 12:17 Diarrhea SURGICAL TAPE AdvReac Hives Uncoded 07/28/21 12:17 Family History (Updated 07/28/21 @ 20:[address] Antonia Adler MD) Mother Cancer Hx Leukemia. Father Cancer Hx Throat CA. Surgical History (Updated 07/28/21 @ 20:[address] Antonia Adler MD) H/O: hysterectomy History of back surgery History of right mastectomy History of total right knee replacement Social History (Updated 07/28/21 @ 20:[address] Antonia Adler MD) household members: none Smoking Status: Never smoker alcohol intake: never substance use type: does not use ROS ROS Narrative Admission Review of Systems: CONSTITUTIONAL: No weight loss, fever, chills, + weakness or fatigue. HEENT: Eyes: No visual loss, blurred vision, double vision or yellow sclerae. Ears, Nose, Throat: No hearing loss, sneezing, congestion, runny nose or sore throat. SKIN: No rash or itching, lesions, wounds. CARDIOVASCULAR: + Right-sided chest pain where patient has rib fractures, No palpitations, edema, orthopnea, syncopal events. RESPIRATORY: No shortness of breath, cough or sputum, wheezing, hemoptysis. GASTROINTESTINAL: + Constipation, No anorexia, nausea, vomiting or diarrhea, abdominal pain, melena, BRBPR. GENITOURINARY: No dysuria, frequency, urgency or retention. NEUROLOGICAL: + Underlying dementia, No headache, dizziness, syncope, paralysis, ataxia, numbness or tingling in the extremities, focal weakness, change in bowel or bladder control, seizure. MUSCULOSKELETAL: + muscle, back pain, joint pain or stiffness. HEMATOLOGIC: + anemia, bleeding or bruising. LYMPHATICS: No enlarged nodes. No history of splenectomy. PSYCHIATRIC: + history of depression or anxiety. ENDOCRINOLOGIC: No reports of sweating, cold or heat intolerance. No polyuria or polydipsia. ALLERGIES: No history of asthma, hives, eczema or rhinitis. Vital Signs Vital Signs Vital Signs: 07/28/21 12:11 07/28/21 14:17 07/28/21 19:12 Temperature 98.1 F Temperature Source Temporal Pulse Rate 84 69 72 Respiratory Rate 14 14 14 Blood Pressure 148/82 H 127/90 H 164/84 H Blood Pressure Mean 104 102 110 Pulse Ox 97 97 997 Oxygen Delivery Method Room Air Room Air Room Air Weight Weight: 175 lb Body Mass Index (BMI) 28.2 Physical Exam Narrative Physical Examination: General: Awake, alert, oriented to self, initially confused about who her son was and called him her and did not specifically recognize her granddaughter which unfortunately is underlying with significant dementia but mildly worsened since recent falls they note, remains cooperative, seated upright in the ED bed, no acute distress. Skin: Normal color, normal turgor, no icterus, no cyanosis except occasional staged ecchymoses and occasional psoriatic appearing skin lesions. HEENT: AT/NC, EOMI, PERRLA, mildly dry MM, no carotid bruits or JVD noted. Lungs: Mild decreased bases, improved effort when encouraged, no rales, ronchi or wheezing. Heart: Currently regular rate and rhythm; no gallop, rub audible. Abdomen: Soft, NTTP, mildly distended, hypoactive bowel sounds, no obvious HSM. Extremities: No cyanosis, clubbing, or edema. Neurological: Patient awake, alert, oriented as noted, cognitive function baseline decreased with underlying dementia, currently mildly decreased from this level given recent fall and fatigue; pupils equally reactive to light and accommodation, cranial nerves II-XII grossly normal, moving all 4 extremities, no focal deficits, strength moderately to severely global decreased. Psychiatric: Affect appears fatigued otherwise mildly flat, no acute evidence of depressive or anxiety feelings. Results Lab / Micro Data Result Diagrams: 07/28/21 12:51 07/28/21 12:51 Labs: Laboratory Results - last 24 hr 07/28/21 12:51: WBC 9.7, RBC 4.07 L, Hgb 10.9 L, Hct 35.0 L, MCV 86.0, MCH 26.8 L, MCHC 31.1 L, RDW Std Deviation 46.5 H, RDW Coeff of Areli 14.7 H, Plt Count 23 9, MPV 9.6, Immature Gran % (Auto) 0.600, Neut % (Auto) 72.8 H, Lymph % (Auto) 14.2 L, Walker % (Auto) 10.0, Eos % (Auto) 1.9, Baso % (Auto) 0.5, Absolute Neuts (auto) 7.1, Absolute Lymphs (auto) 1.38, Nucleated RBC % 0 07/28/21 12:51: Sodium 141, Potassium 3.4 L, Chloride 111 H, Carbon Dioxide 23.0, Anion Gap 7, BUN 8, Creatinine 0.83, Estim Creat Clear Calc 49.76, Est GFR (MDRD) Af Amer 85, Est GFR (MDRD) Non-Af 70, BUN/Creatinine Ratio 9.7 L, Glucose 115 H, Calcium 7.5 L 07/28/21 13:32: Urine Color Yellow, Urine Clarity Clear, Urine pH 5.0, Ur Specific [place] 1.030, Urine Protein Negative, Urine Glucose (UA) Normal, Urine Ketones 5 H, Urine Occult Blood Negative, Urine Nitrite Negative, Urine Bilirubin 1 H, Urine Urobilinogen 1 H, Ur Leukocyte Esterase 25 H, Urine RBC 0 SEEN, Urine WBC 0-5 SEEN, Ur Squamous Epith Cells 0-5 SEEN, Urine Bacteria 0 SEEN, Urine Mucus 0 SEEN Micro: Microbiology 07/28/21 14:09 Nasal Secretion SARS-CoV-2 Antigen (Rapid) - Final Radiology Impression Chest X-Ray 07/28/21 13:00 IMPRESSION: Findings suggestive of a left basilar atelectasis. Electronically Signed: Zeus Vergara MD at 13:31 EDT , Assessment & Plan Assessment/Plan (1) Rib fractures: QUALIFIERS: Encounter type: initial encounter Fracture type: closed Laterality: right Qualified Code(s): S22.41XA - Multiple fractures of ribs, right side, initial encounter for closed fracture (2) Fall: QUALIFIERS: Encounter type: initial encounter Qualified Code(s): W19.XXXA - Unspecified fall, initial encounter (3) FTT (failure to thrive) in adult: PLAN: The patient is an 81 y/o F w/ PMHx: Chronic anemia, HTN, HLD, Anxiety and Depression, Diabetes mellitus type II, Hypothyroidism, Dementia unclear type with unclear behavioral disturbance history who presents to the [facility] ED on 07/28/21 which not fall the evening prior while in the bathroom unfortunately losing her balance falling backwards into the toilet only hitting her back on it fortunately however she had right-sided posterior back pain prompting evaluation at [facility] ED where she had a CT scan of the brain, C-spine and T-spine which demonstrated posterior right 11th and 12th rib fractures with return to home at that time however since then she seemed more fatigued, mildly increased confusion above her baseline with underlying dementia and unable to care for self prompting family to bring her for evaluation for possibly skilled placement. #1. Mechanical fall with right posterior 11th and 12th rib fractures with adult failure to thrive: We will admit to medical surgical floor, maintain on fall precautions, continue judicious usage of pain regimen, hydrate as needed, consult physical and Occupational Therapy as well as case management for discharge planning potentially with [facility] facility placement needs for family concerns with inability to care for self appropriately especially complicated by underlying dementia. #2. Hypokalemia: Admission K+ 3.4, magnesium level, supplementation given, repeat level in AM. #3. Chronic normocytic anemia: Admission hemoglobin 10.9, prior to this most recent hemoglobin 05/27/2017 11.8, continue to trend. #4. Hypertension: Continue home regimen including losartan with hold parameters as needed, PRN hydralazine. #5. Hyperlipidemia: We will continue patient on statin therapy. #6. Hypothyroidism: We will continue patient home levothyroxine regimen. #7. Anxiety and depression: We will continue patient home duloxetine regimen. #8. Diabetes mellitus type II: Hold oral home regimen, ADA diet, accu checks w/ ISS. #9. Dementia unclear type with unclear behavioral disturbance history: Complicates presentation, will continue patient home donepezil regimen, maintain on fall precautions. #10. DVT prophylaxis: SCDs, Lovenox. #11. CODE status: Patient MARILYN is her son who is present with his daughter and living will is currently in place. Discussed CODE status at length including difference between FULL code, DNR-CCA and DNR-CC status. Following discussions about the differences in these status, requested DNR-CCA, no intubation status. Advanced Care Planning Face to Face Time: 16 minutes. Charges/Coding Visit Charges OBSV E&M: 48225 Initial observation care L3 Procedures Hospitalists Procedures: 49324 Advncd Care Plan 30 Min
[2021-07-28 20:02] LABS: Magnesium 1.4 mg/dL (1.6-2.6)
[2021-07-28 20:54] VITALS: BMI 28.3
[2021-07-28 20:57] VITALS: BP 170/98; PULSE 83; RESP 18; TEMP 37.3; O2SAT 99
[2021-07-28] MEDS: 0.9% Normal Saline 1,000 ML 100 ML IV (21:00)
[2021-07-28] MEDS: Potassium Chloride Oral Tablet 20 MEQ 40 MEQ PO (21:54)
[2021-07-28] MEDS: traMADol 50 MG Tablet PO (21:54)
[2021-07-28 21:55] VITALS: BP 170/98; PULSE 83
[2021-07-28] MEDS: Donepezil HCl 10 MG Tablet PO (21:55)
[2021-07-28] MEDS: hydrALAZINE 20 MG/ML Vial 10 MG IV (21:55)
[2021-07-28] MEDS: Acetaminophen 325 MG Tablet 650 MG PO (21:55)
[2021-07-28] MEDS: Latanoprost 0.005% 1 Bottle 1 DRP EACH EYE (21:55)
[2021-07-28] MEDS: Atorvastatin Calcium 20 MG Tablet PO (21:55)
[2021-07-28 22:11] LABS: Bedside Glucose 94 mg/dL (74-106)
[2021-07-28] MEDS: MELATONIN 3 MG TABLET PO (22:50)
[2021-07-28 22:51] VITALS: BP 152/80
[2021-07-29 04:15] VITALS: BP 137/64; PULSE 68; RESP 18; TEMP 37.2; O2SAT 95
[2021-07-29] MEDS: Levothyroxine 88 MCG Tablet PO (04:49)
[2021-07-29] MEDS: Menthol/Lanolin/Calamine/Znox 113 GM Tube 1 APPLIC TOPICAL (04:49)
[2021-07-29] MEDS: Nystatin Powder 15gm Bottle 1 APPLIC TOPICAL (04:49)
[2021-07-29] MEDS: 0.9% Saline Lock 10 ML Syringe IV (04:49)
[2021-07-29 06:06] LABS: Absolute Neutrophil Count 6.8 X10^3/uL (2.0-7.7); Basophil# 0.07 X10^3/uL; Basophil% 0.7 % (0-1); Eosinophils% 2.8 % (0-5); Hematocrit 35.7 % (37-47); Hemoglobin 11.1 g/dL (12.0-15.0); Lymphocyte % 21.8 % (19-41); Mean Corp Hgb Conc 31.1 g/dL (32-36); Mean Corpuscular Hgb 26.7 pg (27.0-32.0); Mean Corpuscular Volume 85.8 fL (81-99); Mean Platelet Vol. 9.4 fl (6.2-12.0); Monocyte# 1.04 X10^3/uL; Monocyte% 9.9 % (0-10); NRBC Flagged by Analyzer 0 % (0-5); Neutrophil # 6.77 X10^3/uL (2.7-7.7); Neutrophil % 64.3 % (47-70); Platelet Count 231 K/mm3 (150-450); RBC Distribution Width CV 14.8 % (11.6-14.6); RBC Distribution Width SD 46.5 fl (35.1-43.9); Red Blood Count 4.16 M/mm3 (4.2-5.4); White Blood Count 10.5 K/mm3 (4.4-11.0)
[2021-07-29 06:36] LABS: Bedside Glucose 105 mg/dL (74-106)
[2021-07-29 06:39] LABS: ALB/GLOB Ratio 0.7 RATIO (0.9-2.4); AST(SGOT) 13 U/L (15-37); Alanine Aminotransfer ALT/SGPT 12 U/L (13-56); Albumin, Serum 2.6 g/dL (3.2-5.0); Alkaline Phosphatase 53 U/L (45-117); Anion Gap 4 (5-15); BUN 9 mg/dL (7-18); BUN/Creat Ratio 10.5 RATIO (10-20); Calcium,Total 8.7 mg/dL (8.5-10.1); Chloride 108 mmol/L (98-107); Creatinine, Serum 0.86 mg/dL (0.55-1.02); EST Glomerular Filtration Rate 67 mL/min (>60); Est Glom Filt Rate - Afr Amer 81 mL/min (>60); Estimated Creatinine Clearance 48.03 ml/min; Globulin 3.5 g/dL (2.2-4.2); Glucose 107 mg/dL (74-106); Potassium 4.7 mmol/L (3.5-5.1); Protein, Total 6.1 g/dL (6.4-8.2); Sodium Level 139 mmol/L (136-145)
--- NOTE | 2021-07-29 07:29 | PCM.PN.HOSP ---
Subjective Subjective Patient is an 81-year-old lady with multiple comorbidities brought in with increasing confusion. Patient had apparently fallen a day prior to her being admitted. Imaging studies obtained demonstrated right posterior 11th and 12th rib fractures. Admitted to regular nursing floor for further management Objective Data Objective Data Vital Signs: Vital Signs Temp Pulse Resp BP Pulse Ox 99 F 68 18 137/64 H 95 07/29/21 04:15 07/29/21 04:15 07/29/21 04:15 07/29/21 04:15 07/29/21 04:15 Oxygen Delivery Method Room Air Weight: 79.9 kg Body Mass Index (BMI) 28.3 Intake & Output: Intake and Output for Last 24 Hours 07/27/21 07/28/21 07/29/21 23:59 23:59 23:59 Intake Total 1000 / 1000 Balance 1000 / 1000 Lab / Micro Data Result Diagrams: 07/29/21 05:55 07/29/21 05:55 Labs: Laboratory Results - last 24 hr 07/28/21 12:51: WBC 9.7, RBC 4.07 L, Hgb 10.9 L, Hct 35.0 L, MCV 86.0, MCH 26.8 L, MCHC 31.1 L, RDW Std Deviation 46.5 H, RDW Coeff of Areli 14.7 H, Plt Count 239, MPV 9.6, Immature Gran % (Auto) 0.600, Neut % (Auto) 72.8 H, Lymph % (Auto) 14.2 L, [place] % (Auto) 10.0, Eos % (Auto) 1.9, Baso % (Auto) 0.5, Absolute Neuts (auto) 7.1, Absolute Lymphs (auto) 1.38, Nucleated RBC % 0 07/28/21 12:51: Sodium 141, Potassium 3.4 L, Chloride 111 H, Carbon Dioxide 23.0, Anion Gap 7, BUN 8, Creatinine 0.83, Estim Creat Clear Calc 49.76, Est GFR (MDRD) Af Amer 85, Est GFR (MDRD) Non-Af 70, BUN/Creatinine Ratio 9.7 L, Glucose 115 H, Calcium 7.5 L 07/28/21 12:51: Magnesium 1.4 L 07/28/21 13:32: Urine Color Yellow, Urine Clarity Clear, Urine pH 5.0, Ur Specific [place] 1.030, Urine Protein Negative, Urine Glucose (UA) Normal, Urine Ketones 5 H, Urine Occult Blood Negative, Urine Nitrite Negative, Urine Bilirubin 1 H, Urine Urobilinogen 1 H, Ur Leukocyte Esterase 25 H, Urine RBC 0 SEEN, Urine WBC 0-5 SEEN, Ur Squamous Epith Cells 0-5 SEEN, Urine Bacteria 0 SEEN, Urine Mucus 0 SEEN 07/28/21 21:57: POC Glucose 94 07/29/21 05:55: WBC 10.5, RBC 4.16 L, Hgb 11.1 L, Hct 35.7 L, MCV 85.8, MCH 26.7 L, MCHC 31.1 L, RDW Std Deviation 46.5 H, RDW Coeff of Areli 14.8 H, Plt Count 231, MPV 9.4, Immature Gran % (Auto) 0.500, Neut % (Auto) 64.3, Lymph % (Auto) 21.8, [place] % (Auto) 9.9, Eos % (Auto) 2.8, Baso % (Auto) 0.7, Absolute Neuts (auto) 6.8, Absolute Lymphs (auto) 2.30, Nucleated RBC % 0 07/29/21 05:55: Sodium 139, Potassium 4.7, Chloride 108 H, Carbon Dioxide 27.0, Anion Gap 4 L, BUN 9, Creatinine 0.86, Estim Creat Clear Calc 48.03, Est GFR (MDRD) Af Amer 81, Est GFR (MDRD) Non-Af 67, BUN/Creatinine Ratio 10.5, Glucose 107 H, Calcium 8.7, Total Bilirubin 0.70, AST 13 L, ALT 12 L, Alkaline Phosphatase 53, Total Protein 6.1 L, Albumin 2.6 L, Globulin 3.5, Albumin/Globulin Ratio 0.7 L 07/29/21 06:32: POC Glucose 105 Micro: Microbiology 07/28/21 14:09 Nasal Secretion SARS-CoV-2 Antigen (Rapid) - Final Radiography Diagnostic Testing: Radiology Impression Chest X-Ray 07/28/21 13:00 IMPRESSION: Findings suggestive of a left basilar atelectasis. Electronically Signed: Zeus Vergara MD at 13:31 EDT , Physical Exam Narrative GENERAL: cooperative HEENT: Atraumatic; EYES; Anicteric, Normal Conjunctiva NECK; supple, normal thyroid, RESPIRATORY: Diminished to auscultation CARDIOVASCULAR: Regular S1 S2, GI: soft, normoactive bowel sounds, : No Renal angle tenderness; EXTREMITIES: No edema, no clubbing, MUSCULOSKELETAL: no muscle wasting NEURO: Awake; no lateralizing signs. SKIN: No Rash PSYCH; Flat affect Assessment & Plan Assessment/Plan (1) Rib fractures: QUALIFIERS: Encounter type: initial encounter Fracture type: closed Laterality: right Qualified Code(s): S22.41XA - Multiple fractures of ribs, right side, initial encounter for closed fracture (2) Fall: QUALIFIERS: Encounter type: initial encounter Qualified Code(s): W19.XXXA - Unspecified fall, initial encounter (3) FTT (failure to thrive) in adult: PLAN: Patient is an 81-year-old lady with multiple comorbidities brought in with increasing confusion. Patient had apparently fallen a day prior to her being admitted. Imaging studies obtained demonstrated right posterior 11th and 12th rib fractures. Admitted to regular nursing floor for further management 1. Acute mechanical fall with right-sided rib fractures ? Imaging studies demonstrated right posterior 11-12 rib fractures. Patient has been admitted to regular nursing floor for pain management, as well as incentive spirometry 2. Physical deconditioning - Requested for PT OT eval and psychologist social to assist with discharge planning 3. Hypokalemia ? Potassium on admission was 3.4 this has been corrected per protocol subsequently being monitored with daily BMPs 4. Anemia - Secondary to chronic disorder monitoring H&H and transfuse if patient becomes symptomatic or hemoglobin falls below 7 5. Dyslipidemia -Patient is on statin therapy, continued at home dose 6. Hypothyroidism - Patient is on levothyroxine home dose continued 7. Depression with anxiety ? Patient is on duloxetine did continue 8. Dementia ? Patient is on memantine did continue 9. Diabetes mellitus type II -patient's oral hypoglycemics held. Placed on Accu-Cheks a.c. and at bedtime and covered with sliding scale insulin 10. DVT prophylaxis ? SC Lovenox Charges/Coding Visit Charges OBSV E&M: 05014 Subsequent observation care L2
--- NOTE | 2021-07-29 09:29 | TREXTCAR_ITS ---
Diet 07/28/21 19:52 Diet: Consistent Carb - Calorie Controlled Food consistency:: Regular Liquid Consistency:: Regular/Thin How many daily calories?: 1800 calorie Routine Orders/Code Status Code Status: DNRCC-A Wound(s) BLE: Wound Type: Stasis Ulcer Therapies Physical Therapy: Eval and Treat Occupational Therapy: Eval and Treat Problem/Diagnosis (1) Rib fractures: Status: Acute (2) Fall: Status: Acute (3) FTT (failure to thrive) in adult: Status: Acute Allergies/Procedures Done in Hospital Allergies egg Allergy (Verified 07/28/21 12:17) Unknown povidone-iodine [From Betadine] Allergy (Verified 07/28/21 12:17) Rash soap [From Betadine] Allergy (Verified 07/28/21 12:17) Rash Sulfa (Sulfonamide Antibiotics) Allergy (Verified 07/28/21 12:17) Rash adhesive Adverse Reaction (Verified 07/28/21 12:17) Hives diazepam [From Valium] Adverse Reaction (Verified 07/28/21 12:17) Other SLURRED SPEECH SODIUM PENTOTHAL Allergy (Uncoded 07/28/21 12:17) Nausea/Vom/Diarrhea SURGICAL TAPE Adverse Reaction (Uncoded 07/28/21 12:17) Hives Type of Care/Length of Stay Estimated LOS: Convalescent Care Less Than 30 days Type of Care Needed: Skilled Rehab Potential: Good Prognosis: Good Additional Orders/Day of Discharge Day of Discharge: 07/29/21 Discharge Plan Admission Admit Date/Time: 07/28/21 19:27 Attending Provider: Santiago Krishnan Primary Care Provider: Rashad Rascon Consulting Providers: Antonia Adler Discharge Orders/Prescriptions Prescriptions: New acetaminophen [Tylenol] 325 mg Tablet 650 mg PO Q4H PRN PRN (Reason: Fever, pain 1-01/02) Qty: 0 RF: 0 oxycodone 5 mg capsule 5 mg PO Q6H PRN (Reason: pain) 3 Days Qty: 10 RF: 0 Continued metformin 500 MG tablet 500 mg PO BID RF: 0 levothyroxine 100 MCG tablet 88 mcg PO DAILY RF: 0 losartan 100 MG tablet 50 mg PO DAILY RF: 0 duloxetine 60 MG capsule 60 mg PO DAILY RF: 0 Centrum Silver 1 EACH tablet 1 ea PO DAILY RF: 0 atorvastatin 20 MG tablet 20 mg PO QHS RF: 0 cholecalciferol (vitamin D3) 1,000 UNIT tablet,chewable 1,000 unit PO DAILY RF: 0 memantine 5 mg tablet 5 mg PO BID RF: 0 Referrals / Follow Up: Rashad Rascon MD [Primary Care Provider] - Within 2 Weeks Disposition Disposition (needs filled in before D/C Order can be placed): Care Home Facility
--- NOTE | 2021-07-29 09:29 | CASEMGMT ---
Addendum entered by Prasanna Hall 07/29/21 10:02: PASSRR completed and faxed to to [facility] along w/discharge orders. Transportation set up through [facility] via on-line portal for 11:45 AM pick-up time via cot. RN notified. Call placed to Jr burnett. VM left for him re: time of transportation per his request. Addendum entered by Prasanna Hall 07/29/21 09:58: SonJr, called YOON CLAYTON back. He was notified pt has been accepted @ [facility] and will be discharging there today. YOON CLAYTON to notify him time of transport, once it is arranged. Per Beverly @ [facility], the negative COVID test done yesterday @ 1409 is sufficient and pt does not need repeat COVID test done today. She is also aware PT/OT evals have not been completed. She states they will not to be done prior to discharge. Original Note: YOON CLAYTON NOTE: Spoke w/Beverly @ [facility]. She received the referral, they are able to accept pt, and they can take pt today. Dr Krishnan notified and states pt is medically ready to discharge. Pt will need negative COVID test prior to discharge. Kellie THOMPSON, made aware and will notify nurse for COVID test order to be placed. Call placed to pt's sonHector, to notify him. No answer. VM left for return call to YOON CLAYTON. Phone number provided. Jaye LÓPEZ RN, CM
--- NOTE | 2021-07-29 09:32 | DS.PCM_ITS ---
Providers Date of Admission: 07/28/21 Primary Care Physician: Dr. Rashad Rascon MD Reason For Visit: FTT ADULT, FALL W/ R RIB FX Diagnosis Discharge Diagnosis (1) Rib fractures: Status: Acute Code(s): S22.49XA - Multiple fractures of ribs, unspecified side, initial encounter for closed fracture Qualifiers: Encounter type: initial encounter Fracture type: closed Laterality: right Qualified Code(s): S22.41XA - Multiple fractures of ribs, right side, initial encounter for closed fracture (2) Fall: Status: Acute Code(s): W19.XXXA - Unspecified fall, initial encounter Qualifiers: Encounter type: initial encounter Qualified Code(s): W19.XXXA - Unspecified fall, initial encounter (3) FTT (failure to thrive) in adult: Status: Acute Code(s): R62.7 - Adult failure to thrive Medications at Discharge Home Medications Centrum Silver 1 ea PO DAILY 06/19/13 duloxetine 60 mg PO DAILY 06/19/13 levothyroxine 88 mcg PO DAILY 06/19/13 losartan 50 mg PO DAILY 06/19/13 metformin 500 mg PO BID 06/19/13 atorvastatin 20 mg PO QHS 05/25/17 cholecalciferol (vitamin D3) 1,000 unit PO DAILY 09/10/18 memantine 5 mg PO BID 07/28/21 acetaminophen [Tylenol] 650 mg PO Q4H PRN PRN #0 tab 07/29/21 oxycodone 5 mg PO Q6H PRN 3 Days #10 cap 07/29/21 Hospital Course Summary of Care Provided Minutes Spent on Discharge: 35 Hospital Course: Patient is an 81-year-old lady with multiple comorbidities brought in with increasing confusion. Patient had apparently fallen a day prior to her being admitted. Imaging studies obtained demonstrated right posterior 11th and 12th rib fractures. Admitted to regular nursing floor for further management 1. Acute mechanical fall with right-sided rib fractures ? Imaging studies demonstrated right posterior 11-12 rib fractures. Patient has been admitted to regular nursing floor for pain management, as well as incentiv e spirometry 2. Physical deconditioning - Requested for PT OT eval and dialysis social worker to assist with discharge planning 3. Hypokalemia ? Potassium on admission was 3.4 this has been corrected per protocol subsequently being monitored with daily BMPs 4. Anemia - Secondary to chronic disorder monitoring H&H and transfuse if patient becomes symptomatic or hemoglobin falls below 7 5. Dyslipidemia -Patient is on statin therapy, continued at home dose 6. Hypothyroidism - Patient is on levothyroxine home dose continued 7. Depression with anxiety ? Patient is on duloxetine did continue 8. Dementia ? Patient is on memantine did continue 9. Diabetes mellitus type II -patient's oral hypoglycemics held. Placed on Accu-Cheks a.c. and at bedtime and covered with sliding scale insulin 10. DVT prophylaxis ? SC Lovenox Physical Exam Narrative GENERAL: cooperative HEENT: Atraumatic; EYES; Anicteric, Normal Conjunctiva NECK; supple, normal thyroid, RESPIRATORY: Diminished to auscultation CARDIOVASCULAR: Regular S1 S2, GI: soft, normoactive bowel sounds, : No Renal angle tenderness; EXTREMITIES: No edema, no clubbing, MUSCULOSKELETAL: no muscle wasting NEURO: Awake; no lateralizing signs. SKIN: No Rash PSYCH; Flat affect Weight / BMI Weight Weight: 79.9 kg Body Mass Index (BMI) 28.3 ABG / Lab / Microbiology Data Result Diagrams: 07/29/21 05:55 07/29/21 05:55 Laboratory: Laboratory Results - last 24 hr 07/28/21 12:51: WBC 9.7, RBC 4.07 L, Hgb 10.9 L, Hct 35.0 L, MCV 86.0, MCH 26.8 L, MCHC 31.1 L, RDW Std Deviation 46.5 H, RDW Coeff of Areli 14.7 H, Plt Count 239, MPV 9.6, Immature Gran % (Auto) 0.600, Neut % (Auto) 72.8 H, Lymph % (Auto) 14.2 L, [place] % (Auto) 10.0, Eos % (Auto) 1.9, Baso % (Auto) 0.5, Absolute Neuts (auto) 7.1, Absolute Lymphs (auto) 1.38, Nucleated RBC % 0 07/28/21 12:51: Sodium 141, Potassium 3.4 L, Chloride 111 H, Carbon Dioxide 23.0, Anion Gap 7, BUN 8, Creatinine 0.83, Estim Creat Clear Calc 49.76, Est GFR (MDRD) Af Amer 85, Est GFR (MDRD) Non-Af 70, BUN/Creatinine Ratio 9.7 L, Glucose 115 H, Calcium 7.5 L 07/28/21 12:51: Magnesium 1.4 L 07/28/21 13:32: Urine Color Yellow, Urine Clarity Clear, Urine pH 5.0, Ur Specific [place] 1.030, Urine Protein Negative, Urine Glucose (UA) Normal, Urine Ketones 5 H, Urine Occult Blood Negative, Urine Nitrite Negative, Urine Bilirubin 1 H, Urine Urobilinogen 1 H, Ur Leukocyte Esterase 25 H, Urine RBC 0 SEEN, Urine WBC 0-5 SEEN, Ur Squamous Epith Cells 0-5 SEEN, Urine Bacteria 0 SEEN, Urine Mucus 0 SEEN 07/28/21 21:57: POC Glucose 94 07/29/21 05:55: WBC 10.5, RBC 4.16 L, Hgb 11.1 L, Hct 35.7 L, MCV 85.8, MCH 26.7 L, MCHC 31.1 L, RDW Std Deviation 46.5 H, RDW Coeff of Areli 14.8 H, Plt Count 231, MPV 9.4, Immature Gran % (Auto) 0.500, Neut % (Auto) 64.3, Lymph % (Auto) 21.8, [place] % (Auto) 9.9, Eos % (Auto) 2.8, Baso % (Auto) 0.7, Absolute Neuts (auto) 6.8, Absolute Lymphs (auto) 2.30, Nucleated RBC % 0 07/29/21 05:55: Sodium 139, Potassium 4.7, Chloride 108 H, Carbon Dioxide 27.0, Anion Gap 4 L, BUN 9, Creatinine 0.86, Estim Creat Clear Calc 48.03, Est GFR (MDRD) Af Amer 81, Est GFR (MDRD) Non-Af 67, BUN/Creatinine Ratio 10.5, Glucose 107 H, Calcium 8.7, Total Bilirubin 0.70, AST 13 L, ALT 12 L, Alkaline Phosphatase 53, Total Protein 6.1 L, Albumin 2.6 L, Globulin 3.5, Albumin/Globulin Ratio 0.7 L 07/29/21 06:32: POC Glucose 105 Microbiology: Microbiology 07/28/21 14:09 Nasal Secretion SARS-CoV-2 Antigen (Rapid) - Final Radiography Diagnostic Testing: Radiology Impression Chest X-Ray 07/28/21 13:00 IMPRESSION: Findings suggestive of a left basilar atelectasis. Electronically Signed: Zeus Vergara MD at 13:31 EDT , D/C Instructions Discharge Diet: No restrictions Meaningful Use Info Meaningful Use Diagnoses (Choose all that apply): None applicable Discharge Plan Admission Admit Date/Time: 07/28/21 19:27 Attending Provider: Santiago Krishnan Primary Care Provider: Rashad Rascon Consulting Providers: Antonia Adler Discharge Orders/Prescriptions Prescriptions: New acetaminophen [Tylenol] 325 mg Tablet 650 mg PO Q4H PRN PRN (Reason: Fever, pain -01/02) Qty: 0 RF: 0 oxycodone 5 mg capsule 5 mg PO Q6H PRN (Reason: pain) 3 Days Qty: 10 RF: 0 Continued metformin 500 MG tablet 500 mg PO BID RF: 0 levothyroxine 100 MCG tablet 88 mcg PO DAILY RF: 0 losartan 100 MG tablet 50 mg PO DAILY RF: 0 duloxetine 60 MG capsule 60 mg PO DAILY RF: 0 Centrum Silver 1 EACH tablet 1 ea PO DAILY RF: 0 atorvastatin 20 MG tablet 20 mg PO QHS RF: 0 cholecalciferol (vitamin D3) 1,000 UNIT tablet,chewable 1,000 unit PO DAILY RF: 0 memantine 5 mg tablet 5 mg PO BID RF: 0 Referrals / Follow Up: Rashad Rascon MD [Primary Care Provider] - Within 2 Weeks Disposition Disposition (needs filled in before D/C Order can be placed): [facility] Facility Charges/Coding Visit Charges OBSV E&M: 34696 Observation care discharge
--- NOTE | 2021-07-29 09:59 | PHA.DC.MR ---
Pharmacy Service has performed discharge medication reconciliation for this patient. The patient's discharge medication list was reviewed for discrepancies and discrepancies were resolved. Home Medications Centrum Silver 1 ea PO DAILY 06/19/13 duloxetine 60 mg PO DAILY 06/19/13 levothyroxine 88 mcg PO DAILY 06/19/13 losartan 50 mg PO DAILY 06/19/13 metformin 500 mg PO BID 06/19/13 atorvastatin 20 mg PO QHS 05/25/17 cholecalciferol (vitamin D3) 1,000 unit PO DAILY 09/10/18 memantine 5 mg PO BID 07/28/21 acetaminophen [Tylenol] 650 mg PO Q4H PRN PRN #0 tab 07/29/21 oxycodone 5 mg PO Q6H PRN 3 Days #10 cap 07/29/21
[2021-07-29 10:15] VITALS: BP 142/78; PULSE 69; RESP 16; TEMP 37; O2SAT 96
[2021-07-29] MEDS: DULoxetine Hcl 60 MG Capsule PO (10:50)
[2021-07-29] MEDS: Losartan Potassium 50 MG Tablet PO (10:50)
[2021-07-29] MEDS: Enoxaparin 40 MG/0.4 ML Syringe SC (10:50)
[2021-07-29 10:56] LABS: Bedside Glucose 89 mg/dL (74-106)
--- NOTE | 2021-07-29 11:00 | CASEMGMT ---
Social Work Note SW placed transfer to extended care facility, signed medication list, any scripts, COVID testl, tool, and PAS/RR and PAS/RR results in SNF folder copy. Copy on pt's chart. Transportation form placed on SNF folder and copy on pt's chart. SW in to speak with pt. SW updated pt that she will discharge to [facility] today at 11:45am. Pt states understanding. Kellie Matthew COMMUNICATIONS BILLING ANALYST, CHEMICAL TECHNICIAN
--- NOTE | 2021-07-29 11:55 | NURSING ---
REPORT CALLED TO [facility] AT [facility]. TRANSPORTATION WAS SCHEDULED FOR [id number]
[2021-07-29] MEDS: traMADol 50 MG Tablet PO (12:17)
--- NOTE | 2021-07-29 12:22 | NURSING ---
TRANSPORTATION HERE FOR PT
== END 2021-07-29 12:24 | disposition skilled nursing facility (03) ==
LOC: ED 19:27 → MS3 19:39
PROVIDERS: Admitting Provider Family Medicine; Emergency Provider Physician Assistant; PCP Family Medicine; Visit Provider Internal Medicine
DX: S22.41XA Multiple fractures of ribs, right side, initial encounter for closed fracture (principal); F03.90 Unspecified dementia, unspecified severity, without behavioral disturbance, psychotic disturbance, mood disturbance, and anxiety; E11.59 Type 2 diabetes mellitus with other circulatory complications; E87.6 Hypokalemia; Y93.9 Activity, unspecified; D63.8 Anemia in other chronic diseases classified elsewhere; F41.8 Other specified anxiety disorders; R62.7 Adult failure to thrive; I10 Essential (primary) hypertension; Z79.84 Long term (current) use of oral hypoglycemic drugs; E78.5 Hyperlipidemia, unspecified; R53.1 Weakness; E03.9 Hypothyroidism, unspecified; Y99.9 Unspecified external cause status; W19.XXXA Unspecified fall, initial encounter; Y92.89 Other specified places as the place of occurrence of the external cause; R26.81 Unsteadiness on feet; R29.6 Repeated falls
CPT/HCPCS: 36415; 71045; 80048; 80053; 81001; 82962; 83735; 85025; 87811; 93005; 96361; 96372; 96374; 99218; 99251; 99284; J7030; P9612; A4216; G0378; G0463